=== PATIENT | male | born 1965 | race Caucasian/White ===

== ENCOUNTER 2017-09-26 15:37 | Inpatient (IN) | payer OTHER ==
[2017-09-26] MEDS ORDERED: DEXAMETHASONE 10 MG/ML VIAL IVP ONE (16:10)
--- NOTE | 2017-09-26 16:21 | EDPHY ---
General Narrative: CHIEF COMPLAINT: Headaches, abnormal MRI HISTORY OF PRESENT ILLNESS: Patient presents with reports of abnormal MRI. He has been having headaches over the past month. Yesterday he was evaluated for this with a CT scan that was reportedly abnormal with MRI recommended. There was a mass in the right frontal lobe. Today he had the MRI done with and without contrast at outside imaging center the MRI revealed 8.6 cm right frontal lobe mass. His primary care physician contacted him and he was sent to the emergency department. Neurosurgeon Dr. Kris Molina was notified of this pre-hospital. Patient has persistent headache with occasional nausea. No vomiting. No weakness or sensory changes. No seizure-like activity per spouse. No difficulty swallowing. No difficulty with urination. No retention of bowel or bladder. No difficulty ambulating. No previous incidence of cancer. No trauma. No blood thinners. No other associated complaints or modifying factors. NPO as of REVIEW OF SYSTEMS: Ten systems reviewed and are negative unless otherwise noted in the HPI PCP: Dr. Yoon in [facility] SPECIALISTS: None PAST MEDICAL HISTORY: Denies any medical history PAST SURGICAL HISTORY: No surgical history SOCIAL HISTORY: Nonsmoker. Occasional alcohol use with occasional marijuana use. 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 EOMs intact. ENT, Mouth: Mucous membranes moist. Airway patent. Neck: Normal inspection, supple, non-tender Respiratory: Lungs are clear to auscultation Cardiovascular: Regular rate and rhythm. No murmur Gastrointestinal: Abdomen is soft and nontender Back: non-tender, no bony abnormalities Neurological: GCS 15. A&O. Cranial nerves 2-12 grossly intact. nonfocal, normal gait. Strength is 5/5 in the arms and legs. No pronator drift. Normal tuhjmp-pu-lalm. No seizure-like activity Skin: Warm and dry, no rash Extremities: Nontender, no pedal edema Psychiatric: Mood and affect normal DIFFERENTIAL DIAGNOSES: Including but not limited to intracranial mass,, meningioma, glioma, subarachnoid hemorrhage, subdural hemorrhage, cephalgia MDM: 4:00 p.m. One month of headaches when right frontal lobe mass diagnosed by MRI today. He is awake and alert no acute distress. Vital signs within normal limits. No seizure-like activity. Normal neuro examination. Neurosurgery has been notified pre-hospital and I will discuss with him now. MRI and CT scans are brought to the hospital on disc and are currently being important. 4:10 p.m. Case discussed with neurosurgeon Dr. Molina. He requests 10 mg of IV Decadron. Her request NPO. He will come evaluate the patient shortly. 4:18 p.m. We received the MRI report from the outside Imaging Center. Impression 1. His large 8.6 cm intra-axial right frontal lobe solid and cystic mass lesion with partial enhancement of the mass. 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 Other intermediate high-grade glial tumor sore possible. Impression asked to mass effect related to the tumor resulted 8 mm leftward midline shift anteriorly and obstruction of the bilateral foramina Monro. Mild associated obstructive hydrocephalus 4:[address] Molina is at bedside evaluating the patient. Requested admission to Dr. Olguin, medical-surgical bed. He is admitted in stable condition. 5:10 p.m. Patient has been evaluated by neurosurgeon and/or surgical PA. They're tentative plan is for surgical intervention on . I have re-evaluated the patient at this time. He is resting comfortably in no acute distress. No seizure-like activity. He is still in stable condition and has been admitted for further care. SUPERVISION: Patient was independently examined, but I discussed the case with my secondary supervising physician Dr. Robledo - History Smoking Status: Former smoker - Objective Vital Signs: Initial Vital Signs Temperature (C) 98.4 F 09/26/17 15:52 Heart Rate 67 09/26/17 15:52 Respiratory Rate 16 09/26/17 15:52 Blood Pressure 151/94 H 09/26/17 15:52 O2 Sat (%) 97 09/26/17 15:52 O2 Delivery Mode Room Air Allergies/Adverse Reactions: ibuprofen Allergy (Verified 09/26/17 17:03) "Puffy/Swollen Eyes" Home Medications: Medication Instructions Recorded NK [No Known Home Meds] 09/26/17 Laboratory Results: Laboratory Results 09/26/17 16:21 09/26/17 16:21 09/26/17 09/26/17 09/26/17 16:21 16:21 16:21 WBC 6.77 10^3/uL 10^3/uL (3.80-9.50) RBC 5.10 10^6/uL 10^6/uL (4.40-6.38) Hgb 16.1 g/dL g/dL (13.7-17.5) Hct 46.0 % % (40.0-51.0) MCV 90.2 fL fL (81.5-99.8) MCH 31.6 pg pg (27.9-34.1) MCHC 35.0 g/dL g/dL (32.4-36.7) RDW 12.6 % % (11.5-15.2) Plt Count 227 10^3/uL 10^3/uL (150-400) MPV 9.4 fL fL (8.7-11.7) Neut % (Auto) 64.0 % % (39.3-74.2) Lymph % (Auto) 24.4 % % (15.0-45.0) Ward % (Auto) 9.0 % % (4.5-13.0) Eos % (Auto) 2.1 % % (0.6-7.6) Baso % (Auto) 0.4 % % (0.3-1.7) Nucleat RBC Rel Count 0.0 % % (0.0-0.2) Absolute Neuts (auto) 4.33 10^3/uL 10^3/uL (1.70-6.50) Absolute Lymphs (auto) 1.65 10^3/uL 10^3/uL (1.00-3.00) Absolute Monos (auto) 0.61 10^3/uL 10^3/uL (0.30-0.80) Absolute Eos (auto) 0.14 10^3/uL 10^3/uL (0.03-0.40) Absolute Basos (auto) 0.03 10^3/uL 10^3/uL (0.02-0.10) Absolute Nucleated RBC 0.00 10^3/uL 10^3/uL (0-0.01) Immature Gran % 0.1 % % (0.0-1.1) Immature Gran # 0.01 10^3/uL 10^3/uL (0.00-0.10) PT 13.6 SEC SEC (12.0-15.0) INR 1.02 (0.83-1.16) APTT 26.8 SEC SEC (23.0-38.0) Sodium 141 mEq/L mEq/L (135-145) Potassium 4.3 mEq/L mEq/L (3.5-5.2) Chloride 105 mEq/L mEq/L (97-110) Carbon Dioxide 24 mEq/l mEq/l (22-31) Anion Gap 12 mEq/L mEq/L (8-16) BUN 20 mg/dL mg/dL (7-23) Creatinine 1.0 mg/dL mg/dL (0.7-1.3) Estimated GFR > 60 Glucose 99 mg/dL mg/dL (70-100) Calcium 9.6 mg/dL mg/dL (8.5-10.4) Medications Given: Discontinued Medications Dexamethasone (Decadron Injection) 10 mg IVP EDNOW ONE Stop: 09/26/17 16:11 Last Admin: 09/26/17 16:41 Dose: 10 mg Departure - Departure Disposition: [facility] Acute Clinical Impression: Right frontal lobe mass Cephalgia Qualifiers: Headache type: other complicated headache syndrome Qualified Code(s): G44.59 - Other complicated headache syndrome Condition: Good
[2017-09-26 16:30] LABS: PLATELET COUNT 227 10^3/uL (150-400)
[2017-09-26 16:48] LABS: INR 1.02 (0.83-1.16); PROTIME(PATIENT) 13.6 SEC (12.0-15.0)
[2017-09-26] MEDS ORDERED: levETIRAcetam 1000MG/NACL 100 ML IV ONE (17:24)
--- NOTE | 2017-09-26 18:08 | GHP ---
[f rep st] HISTORY AND PHYSICAL DATE OF ADMISSION: 09/26/2017 ADDITIONAL DICTATED FOR: Kodi Olguin MD CHIEF COMPLAINT: Headaches. Frontal lobe tumor. HISTORY OF PRESENT ILLNESS: The patient is a 51-year-old gentleman who lives with his family in [facility]. Patient began having headaches approximately 1 month ago. The patient was sent for a CAT scan of his brain, which he then was referred to get an MRI of the brain, which occurred today in [place]. The patient was notified to come directly to the emergency department here at [facility] from the imaging center in [place] due to his findings. The patient denies any other symptoms other than his headache over the last month, some minimal forgetfulness approximately 1 week ago, but that has since resolved. The patient denies any balance troubles or weakness or difficulties with speech. The patient denies any vomiting or any changes in his vision. Denies any seizures. REVIEW OF SYSTEMS: A 10-point review of systems was performed and negative otherwise what was noted in the HPI. PAST MEDICAL HISTORY: Patient denies any past medical history. CURRENT MEDICATIONS: Patient does not take any current medications. ALLERGIES: Patient does not have any known drug allergies. SOCIAL HISTORY: Patient drinks approximately 1-2 beers daily in a casual setting. He denies any nicotine use. He does smoke marijuana. The patient is to his and they have 2 children, ages 8 and 6, and they live in [place], [place]. FAMILY HISTORY: Patient denies any family history of cancer. LABORATORY RESULTS: White blood cell count is 6.77, hemoglobin is 16.1, hematocrit is 46, platelet count is 227. PT is 13.6, INR is 6.8. Sodium is 141 , potassium 4.3, BUN 20, creatinine 1.0, glucose is 99. DIAGNOSTIC IMAGING: MRI of the brain performed with and without contrast at outside facility in [place] does demonstrate a large right frontal lobe mass measuring approximately 8-9 cm. There is no radiology report available for this imaging at this time. PHYSICAL EXAMINATION: VITAL SIGNS: Blood pressure is 134/95, heart rate is 51 , respiratory rate is 16, oxygen is 95% on room air, temperature is 36.9 degrees Celsius. HEENT: Head is normocephalic and atraumatic. Pupils are equal, round, and reactive to light. EOMI is intact. Full visual byrd by confrontation. Ears are patent. Nose is patent. RESPIRATORY: Deferred. CARDIAC: Deferred. ABDOMEN: Deferred. RECTAL: Deferred. GENITOURINARY: Deferred. NEUROLOGIC: The patient is awake, alert, and oriented to name, place , time, location, and situation. Memory is intact to immediate, past, and current events. Speech, no aphasia or dysphonia. Cranial nerves 2-12 are grossly intact. 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 Sensation is grossly intact to light touch throughout all dermatomal distributions in bilateral lower extremities. Reflexes: Biceps, triceps, brachioradialis, knee jerk, and ankle jerk are 2+/4. Toes are downgoing bilaterally. Rio sign is negative. Babinski is negative. ASSESSMENT AND PLAN: Patient is an otherwise very healthy 51-year-old male who resides in [place], [place] with his family. The patient began experiencing headaches approximately 1 month ago, underwent imaging in [place], [place] today , which MRI of the brain with and without demonstrated a large right frontal lobe mass. The patient then came directly to the emergency room here at [facility] for further evaluation. Radiology report is not available for the imaging sent from [place]. Patient is otherwise completely neurologically intact other than his headache. We will admit this patient to the medical-surgical floor and will administer Decadron as well as Keppra. The patient will be placed on the operating room schedule on afternoon, where he will undergo a right frontal craniotomy for tumor resection with Dr Olguin. The patient and his both agree and will proceed with surgery on . The patient was seen and examined in the emergency department by myself and Dr. Sung Molina at 1630 on September 26, 2017. /[id number]/MODL MTDD
[2017-09-26] MEDS: DEXAMETHASONE 4 MG TAB PO SCH ×2 (18:11→23:28)
[2017-09-26] MEDS: levETIRAcetam 500MG/NACL 100 ML IV SCH (21:40)
[2017-09-27] MEDS: DEXAMETHASONE 4 MG TAB PO SCH ×4 (05:35→23:04)
--- NOTE | 2017-09-27 08:09 | NEUSURGPN ---
Assessment/Plan: Assessment: 51 year old with one month history of headaches, large right frontal mass Plan: -Continue decadron and keppra -Patient remains neurologically intact -Surgery is scheduled for tomorrow at 1430 -NPO at midnight -Stealth MRI brain in am -Discussed patient with Dr Olguin who will come see patient later today or tomorrow -Please call neurosurgery with any questions/concerns Subjective: No new events, waiting for surgery tomorrow Objective: AxOx3 PERRLA EOMI CN 2-12 grossly intact no droop Speech clear MAEx4 Neuro Check Frequency: per routine Urinary Catheter in Place: No - Physician Discussed Patient with : [facility] Neurosurgery Physical Exam - Vitals, I&O, Labs I and O 09/26/17 09/27/17 09/28/17 05:59 05:59 05:59 Intake Total 10 Balance 10 Weight 80.6 kg Intake: IV Infused (ml) 10 Other: Intake Quantity Yes Sufficient Vital Signs Temp Pulse Resp BP Pulse Ox 36.8 C 63 15 126/72 H 95 09/27/17 04:00 09/27/17 04:00 09/27/17 04:00 09/27/17 04:00 09/27/17 04:00 ICD10 Worksheet Patient Problems: Problems Problem Status Onset Cephalgia Acute Right frontal lobe mass Acute
--- NOTE | 2017-09-27 10:56 | ASMTCMCOM ---
CM Note CM Note Notes: Reviewed chart and discussed w/RN. Pt here w/frontal lobe brain mass and is scheduled for crani surgery tomorrow. Pt lives in [place] w/ and 2 kids. CM will follow post-op. Date Signed: 09/27/2017 10:55 AM Electronically Signed By:Maritza Dotson RN
[2017-09-27] MEDS: levETIRAcetam 500MG/NACL 100 ML IV SCH ×2 (12:38→20:08)
[2017-09-27] MEDS ORDERED: BISACODYL 10 MG SUPP PR PRN (23:25)
[2017-09-27] MEDS ORDERED: LACTULOSE 20 GM/30 ML UDCUP PO PRN (23:25)
[2017-09-27] MEDS ORDERED: MAGNESIUM HYDROXIDE 30 ML UDCUP PO PRN (23:25)
[2017-09-27] MEDS: POLYETHYLENE GLYCOL 3350 17 GM PKT PO PRN (23:48)
[2017-09-28] MEDS: DEXAMETHASONE 4 MG TAB PO SCH ×3 (05:28→21:19)
[2017-09-28 05:31] LABS: PLATELET COUNT 236 10^3/uL (150-400)
[2017-09-28 05:46] LABS: PROTIME(PATIENT) 13.4 SEC (12.0-15.0)
[2017-09-28] MEDS ORDERED: GADOBUTROL 10 ML VIAL IVP ONE (06:01)
[2017-09-28] MEDS: SENNOSIDES/DOCUSATE SODIUM TAB PO SCH ×2 (09:38→21:20)
[2017-09-28] MEDS: levETIRAcetam 500MG/NACL 100 ML IV SCH (09:39)
[2017-09-28] MEDS ORDERED: BUPIVACAINE 0.25% 30 ML SDV ONE (12:29)
[2017-09-28] MEDS ORDERED: BACITRACIN ZINC 14.2 GM OINTTUBE TP ONE (12:30)
[2017-09-28] MEDS ORDERED: THROMBIN (BOVINE) 5,000 UNIT VIAL TP ONE (12:31)
[2017-09-28] MEDS ORDERED: GENTAMICIN SULFATE 80 MG/2 ML VIAL ONE ×2 (12:32→15:55)
[2017-09-28] MEDS ORDERED: SURGIFLO MATRIX KIT WITH THROMBIN 8ml TP ONE (12:34)
[2017-09-28] MEDS ORDERED: CHLORHEXIDINE GLUC HIBICLENS 118 ML BTL TP ONE (12:35)
[2017-09-28] MEDS ORDERED: MANNITOL 20% 100 GM/500 ML BAG IV ONE (12:37)
[2017-09-28] MEDS ORDERED: HYDROGEN PEROXIDE 236 ML BOTTLE TP ONE (12:37)
[2017-09-28] MEDS ORDERED: AVITENE POWDER 1 GM JAR TP ONE ×2 (12:37→16:07)
[2017-09-28] MEDS ORDERED: POVIDONE-IODINE 30 GM OINTTUBE TP ONE (12:37)
--- NOTE | 2017-09-28 13:01 | NEUSURGPN ---
Assessment/Plan: Assessment/Plan: Assessment: 51 year old with one month history of headaches, large right frontal mass Plan: -To OR this afternoon for right sided craniotomy for tumor resection -Continue decadron and keppra -Patient remains neurologically intact -Consents signed, [facility] -Discussed with Dr. Olguin -Please call neurosurgery with any questions/concerns Subjective: No new events. Ready for surgery this afternoon. Objective: AxOx3 PERRLA EOMI CN 2-12 grossly intact no droop Speech clear MAEx4 - Physician Discussed Patient with Dr.: Olguin Patient Seen by : [facility] Neurosurgery Physical Exam - Vitals, I&O, Labs I and O 09/27/17 09/28/17 09/29/17 05:59 05:59 05:59 Intake Total 10 Balance 10 Weight 80.6 kg Intake: IV Infused (ml) 10 Other: Intake Quantity Yes Yes Sufficient Number of Voids Toilet 1 Vital Signs Temp Pulse Resp BP Pulse Ox 37.0 C 54 L 16 136/82 H 94 09/28/17 11:25 09/28/17 11:25 09/28/17 11:25 09/28/17 11:25 09/28/17 11:25 Laboratory Results 09/28/17 04:55 09/28/17 04:55 ICD10 Worksheet Patient Problems: Problems Problem Status Onset Cephalgia Acute Right frontal lobe mass Acute
[2017-09-28] MEDS ORDERED: LR 1,000 ML IV ONE (13:44)
[2017-09-28] MEDS ORDERED: ceFAZolin 2 GM/SWFI 2 GM/20 ML SYR IVP ONE (14:00)
[2017-09-28] MEDS ORDERED: REMIFENTANIL HCL 1 MG VIAL ONE (14:03)
[2017-09-28] MEDS ORDERED: PROPOFOL 200 MG/20 ML VIAL ONE ×3 (14:04→17:08)
[2017-09-28] MEDS ORDERED: fentaNYL 250 MCG/5 ML INJ ONE (14:04)
[2017-09-28] MEDS ORDERED: PROPOFOL/EMULSION 500 MG/50 ML BOTTLE IV ONE (14:04)
[2017-09-28] MEDS ORDERED: ROCURONIUM 100 MG/10 ML VIAL ONE (14:15)
[2017-09-28] MEDS ORDERED: LIDOCAINE 2% 5 ML SDV ONE (14:18)
[2017-09-28] MEDS ORDERED: niCARdipine/NACL 200 ML IV SCH (14:30)
[2017-09-28] MEDS ORDERED: MIDAZOLAM 2 MG/2 ML VIAL IVP ONE (14:33)
[2017-09-28] MEDS ORDERED: SUGAMMADEX SODIUM 200 MG/2 ML VIAL IVP ONE (14:36)
[2017-09-28] MEDS ORDERED: ONDANSETRON 4 MG/2 ML VIAL ONE (14:36)
[2017-09-28] MEDS ORDERED: DEXAMETHASONE 4 MG/ML VIAL ONE (14:36)
[2017-09-28] MEDS ORDERED: niCARdipine/NACL 200 ML IV PRN (15:19)
[2017-09-28] MEDS ORDERED: *MD ORDERING ONLY-DEXAMETHASONE TAPER PO SCH (15:30)
--- NOTE | 2017-09-28 15:31 | PDANEPAE ---
ANE History of Present Illness right frontal lobe mass for crani ANE Past Medical History - Cardiovascular History Hx Hypertension: No Hx Arrhythmias: No Hx Chest Pain: No Hx Coronary Artery / Peripheral Vascular Disease: No Hx CHF / Valvular Disease: No Hx Palpitations: No - Pulmonary History Hx COPD: No Hx Asthma/Reactive Airway Disease: No Hx Recent Upper Respiratory Infection: No Hx Oxygen in Use at Home: No Hx Sleep Apnea: No Sleep Apnea Screening Result - Last Documented: Negative - Endocrine History Hx Diabetes: No Hypothyroid: No Hyperthyroid: No Obesity: no - Chronic Pain History Chronic Pain: No ANE Review of Systems Review of systems is: negative Review of Systems: - Exercise capacity Exercise capacity: >=4 METS ANE Patient History - Allergies Allergies/Adverse Reactions: ibuprofen Allergy (Verified 09/26/17 17:03) "Puffy/Swollen Eyes" - Home Medications Home medications: home medication list seen and reviewed Home Medications: NK [No Known Home Meds] 09/26/17 [Last Taken Unknown] - NPO status NPO Since - Liquids (Date): 09/28/17 NPO Since - Liquids (Time): 00:00 NPO Since - Solids (Date): 09/28/17 NPO Since - Solids (Time): 00:00 - Anes Hx Anes Hx: no prior problems - Smoking Hx Smoking Status: Former smoker ANE Labs/Vital Signs - Labs Result Diagrams: 09/28/17 04:55 09/28/17 04:55 - Vital Signs Blood Pressure: 136/82 Heart Rate: 54 Respiratory Rate: 16 O2 Sat (%): 94 Height: 182.88 cm Weight: 80.6 kg ANE Physical Exam - Airway Neck exam: FROM Mallampati Score: Class 1 Mouth exam: normal dental/mouth exam - Pulmonary Pulmonary: no respiratory distress - Cardiovascular Cardiovascular: regular rate and rhythym - ASA Status ASA Status: II ANE Anesthesia Plan Anesthesia Plan: general endotracheal anesthesia Lines/Monitors: arterial line Specialized Airway: video laryngoscope Urgent/Emergent Case: Armind[place]apito dos santosjayce completed preop but documented later for safe timely pt care
[2017-09-28] MEDS ORDERED: HYDROmorphONE/DILAUDID 2 MG/ML INJ ONE (15:43)
--- NOTE | 2017-09-28 16:40 | POSTANESTH ---
Post Anesthetic Evaluation Cardiovascular Status: Normal, Stable Respiratory Status: Normal, Stable Level of Consciousness/Mental Status: Can Participate in Eval Pain Control: Adequate, Prn Tx Ordered Nausea/Vomiting Control: Adequate, Prn Tx Ordered Complications Possibly Related to Anesthesia: None Noted
[2017-09-28] MEDS ORDERED: METOCLOPRAMIDE 10 MG/2 ML VIAL IVP PRN (18:13)
[2017-09-28] MEDS ORDERED: ACETAMINOPHEN 500 MG TAB PO PRN (18:13)
[2017-09-28] MEDS ORDERED: OXYCODONE/APAP 5/325 TAB PO PRN (18:13)
[2017-09-28] MEDS ORDERED: NS 500 ML IV PRN (18:13)
[2017-09-28] MEDS ORDERED: ALBUTEROL 3 ML DEYVIAL IH PRN (18:13)
[2017-09-28] MEDS ORDERED: PROMETHAZINE HCL 25 MG/ML INJ IVP PRN (18:13)
[2017-09-28] MEDS ORDERED: ONDANSETRON 4 MG/2 ML VIAL IVP PRN (18:13)
[2017-09-28] MEDS ORDERED: NALOXONE HCL 0.4 MG/ML INJ IVP PRN (18:13)
[2017-09-28] MEDS ORDERED: HYDROmorphONE/DILAUDID 1 MG/ML INJ IVP PRN (18:13)
[2017-09-28] MEDS ORDERED: LABETALOL HCL 5 MG/ML 20 ML MDV IVP PRN (18:13)
[2017-09-28] MEDS ORDERED: HYDROCODONE/APAP 5/325 TAB PO PRN (18:13)
[2017-09-28] MEDS ORDERED: fentaNYL 100 MCG/2 ML INJ IVP PRN (18:13)
--- NOTE | 2017-09-28 19:09 | POSTOPPROG ---
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
[2017-09-28] MEDS: NS W/ 20 KCl/L 1,000 ML IV SCH (19:51)
[2017-09-28] MEDS: ONDANSETRON 4 MG/2 ML VIAL IVP PRN (20:18)
[2017-09-28] MEDS ORDERED: DEXAMETHASONE 4 MG/ML VIAL IVP ONE (21:15)
[2017-09-28] MEDS ORDERED: FAMOTIDINE 20 MG/2 ML SDV IVP ONE (21:15)
[2017-09-28] MEDS ORDERED: levETIRAcetam 750 MG in NS (SYRINGE) 50 ML IV ONE (21:15)
[2017-09-28] MEDS: levETIRAcetam 500 MG TAB PO SCH (21:19)
[2017-09-28] MEDS: FAMOTIDINE 20 MG TAB PO SCH (21:19)
[2017-09-28] MEDS ORDERED: FAMOTIDINE 20 MG/NACL 50 ML IV ONE (21:30)
[2017-09-28] MEDS ORDERED: SCOPOLAMINE HYDROBROMIDE 1 MG/3 DAYS PATCH TD ONE (22:15)
[2017-09-28] MEDS: METOCLOPRAMIDE 10 MG/2 ML VIAL IVP PRN (22:22)
--- NOTE | 2017-09-28 23:09 | GOP ---
[f rep st] OPERATIVE REPORT DATE OF OPERATION: 09/28/2017 SURGEON: Kodi Olguin MD NEUROSURGEON: Kodi Olguin MD. [employer] PROFESSOR: Shy Sewell PA-C ANESTHESIA: General endotracheal. 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 POSTOPERATIVE DIAGNOSIS: Large intra-axial frontal brain mass, likely low- grade glial neoplasm. PROCEDURE PERFORMED: 1. Right frontal craniotomy. 2. Microsurgical gross total resection of large right frontal intrinsic brain tumor. 3. Use of the operative microscope. 4. Stealth stereotactic neuronavigation for volumetric gross total resection of intrinsic brain tumor. 5. Use of the intraoperative ultrasound. FINDINGS: Successful brain tumor resection. SPECIMENS: Right frontal brain mass for frozen and permanent section. ESTIMATED BLOOD LOSS: 30 cc. DESCRIPTION OF PROCEDURE: After informed consent was obtained from the patient , the patient was brought to the operating room, and was placed in supine position on the operating table. A formal time-out was performed, identifying the patient by name, medical record number, and date of . Preoperative antibiotics were given. The endotracheal tube was placed and general endotracheal anesthesia was smoothly induced. The head was then placed in the Starkey pins and kept in a relatively neutral position. The Stealth was then registered to the scalp and checked for accuracy using known surface landmarks. This was then used to plan a roughly 3/4 bicoronal incision, starting from just above the zygoma on the right side and crossing the midline behind the area of the tumor. A small strip of hair was clipped along the line of the incision, and 10 cc of 0.25% Marcaine with epinephrine was infiltrated in the skin for hemostasis. The head was then prepped and draped in the normal sterile fashion. The skin incision was made using a 10 blade. The subcutaneous tissues were dissected using monopolar electrocautery. Haresh clips were placed for hemostasis. The galea was opened along the full line of the incision, but the temporalis fascia was left intact. Once the incision was opened, the flap was retracted anteriorly by dissecting the areolar connective tissue between the skin and the periosteum. Once the flap was fully reflected, the Stealth was then used to localize the midline over the sagittal sinus and be sure that we had a large enough area for the craniotomy. Once this was complete, the periosteal flap was elevated anteriorly and preserved. At this point, 3 bur holes were made to the left of the midline, exposing the sagittal sinus and 2 bur holes were made on the right side just above the superior temporal line. This allowed us to turn a roughly 6 x 6 cm craniotomy flap using the craniotome. Some Gelfoam was placed over the sagittal sinus and dural tack-up stitches were placed around the circumference of the opening. At this point, the intraoperative ultrasound was brought in the field, and was used to visualize the area of the tumor, which was easily seen beneath. The cystic areas posteriorly were well visualized, also, confirming that we had a large enough craniotomy for the tumor removal. The dura was then opened in a U- shaped fashion with its base at the sagittal sinus and the brain was visualized. The operative microscope was brought on the field and the remainder of the procedure was performed under high-power magnification. Starting anteriorly, the joyce was coagulated and we coagulated the joyce in a circumferential fashion all the way around the edges of the tumor, as seen by the ultrasound and the Stealth. A corticectomy was then made and careful dissection was performed around the edges of the tumor except anteriorly, where we were transecting the anterior portion of the tumor. Laterally and posteriorly, the tumor was carefully dissected down to where the normal brain was visualized. Medially, the interhemispheric fissure was dissected and the anterior cerebral arteries were visualized. These were carefully preserved. This allowed us to use the ultrasonic aspirator to undercut this segment and remove a very large piece of the tumor. A small piece of this was sent for frozen section, which confirmed a low-grade glioma. At this point, the interhemispheric fissure was further dissected. The callosum marginal artery was identified on the right side and this was skeletonized of its branches that were entering the cingulate gyrus and preserved. The cingulate gyrus was then removed and the corpus callosum was visualized with the pericallosal arteries, which were also preserved. We were then able to dissect around the depth of the tumor posteriorly at the edge of the corpus callosum, and a portion of the tumor was growing into the corpus callosum. This was also removed. The frontal horn of the lateral ventricle was entered and a cotton brian was placed in the ventricle to avoid any blood entering into the ventricular system. At this point, the depth of the tumor was realized so we continued the corticectomy anteriorly all the way to the frontal tip, and the remainder of the tumor was removed by circumferential dissection and using the ultrasonic aspirator. The cavity was checked with the Stealth although, because of the tremendous brain shift because of the large size of the tumor, the accuracy was not very good. We did check all the borders of the tumor cavity, and no further tumor tissue was visualized. The wound was copiously irrigated using gentamicin irrigation. The cavity was lined with Surgicel. At this point, the dura was closed in a watertight fashion using running 4-0 Nurolon. Prior to the final closure, the wound was filled with sterile irrigation. A few central tack-up stitches were placed in the middle of the flap as well. The bone flap was plated back in place using Synthes titanium plates and screws. Again, the wound was copiously irrigated using bacitracin irrigation. The pericranial flap was laid over the craniotomy and a 10-Swazi VAIBHAV drain was placed in the sub galea space. The galea was then closed using interrupted 2-0 Vicryl, and the skin was closed using a running 4-0 Monocryl. The hair was washed, sterile dressings were placed. The drain was connected to a sterile drainage system. The patient was awakened in the operating room, where he was moving all of his extremities and speaking after extubation, and appeared to be at his normal neurologic baseline. All sponge and needle counts were correct at the end of the case. BRIEF CLINICAL HISTORY: The patient is a 51-year-old man who presents after having some headaches and a brain MRI was ordered by his primary care doctor, which showed a very large 8 cm frontal brain mass. This was depressing the genu of the corpus callosum and anterior portion of the right lateral ventricle. We discussed the options but ultimately recommended resection and biopsy. We have taken him electively today for this procedure. FLUIDS: 1500 of crystalloid. URINE OUTPUT: Per the anesthesia record. /[id number]/MODL MTDD
[2017-09-28] MEDS: HYDROmorphONE/DILAUDID 1 MG/ML INJ IVP PRN (23:33)
[2017-09-29] MEDS: HYDROmorphONE/DILAUDID 1 MG/ML INJ IVP PRN ×7 (00:49→22:32)
[2017-09-29] MEDS ORDERED: DEXAMETHASONE 4 MG/ML VIAL IVP ONE (02:30)
[2017-09-29] MEDS: DEXAMETHASONE 4 MG TAB PO SCH ×4 (02:45→21:01)
[2017-09-29] MEDS: NS W/ 20 KCl/L 1,000 ML IV SCH (06:21)
[2017-09-29] MEDS: ONDANSETRON DISINTEGRATING 4 MG TAB PO PRN ×2 (07:30→12:12)
[2017-09-29] MEDS: FAMOTIDINE 20 MG TAB PO SCH ×2 (08:35→21:04)
[2017-09-29] MEDS: levETIRAcetam 500 MG TAB PO SCH ×2 (08:35→21:02)
[2017-09-29] MEDS: SENNOSIDES/DOCUSATE SODIUM TAB PO SCH ×2 (08:35→21:04)
[2017-09-29] MEDS: PROMETHAZINE HCL 25 MG/ML INJ IVP PRN ×2 (08:35→22:32)
--- NOTE | 2017-09-29 08:47 | NEUSURGPN ---
Date of Surgery: 09/28/17 Post Op Day: 1 Assessment/Plan: Assessment: 51 year old with one month history of headaches, large right frontal mass. S/P right frontal craniotomy for tumor resection POD#1 Plan: -Patient with some nausea, anti-nausea helping -Patient remains sleepy, to be expected at this point due to size and location of mass. Follows commands and equal strength throughout all extremities -Post op MRI pending this am -VAIBHAV output 500 last night, will take off suction -Remove arterial line -Continue Keppra and Decadron -Frozen path results low grade glioma, final results pending -Discussed patient with Dr Olguin -Please call neurosurgery with any questions/concerns Subjective: Patient has nausea, following commands Objective: Oriented x3, difficult for patient to keep eyes open PERRLA EOMI CN 2-12 grossly intact No droop 5/5 BUE, BLE Dressing CDI VAIBHAV patent Neuro Check Frequency: per routine Urinary Catheter in Place: Yes Urinary Catheter Indication: Accurate I & O Required - Physician Discussed Patient with : Sharif Neurosurgery Physical Exam - Vitals, I&O, Labs I and O 09/28/17 09/29/17 09/30/17 05:59 05:59 05:59 Intake Total 2730 Output Total 2755 Balance -25 Weight 80.6 kg Intake: Oral (ml) 80 IV Intake (ml) 1600 IV Infused (ml) 1050 NS W/ 20 KCl/L 1,000 ml @ 1050 100 mls/hr IV CONT ROSA Rx#:[id number] Output: Urine (ml) 2024 Catheter 2024 Estimated Blood Loss (ml) 30 Emesis (ml) 150 VAIBHAV Drain Output (ml) 550 Right Head Emre Arriaza 550 Other: Intake Quantity Yes Sufficient Number of Voids Toilet 1 Number of Stools Catheter 0 Vital Signs Temp Pulse Resp BP Pulse Ox 37.0 C 48 L 16 127/59 H 95 09/29/17 07:00 09/29/17 07:00 09/29/17 07:00 09/29/17 07:00 09/29/17 07:00 Laboratory Results 09/29/17 04:55 09/28/17 04:55 ICD10 Worksheet Patient Problems: Problems Problem Status Onset Cephalgia Acute Right frontal lobe mass Acute
[2017-09-29] MEDS: METOCLOPRAMIDE 10 MG/2 ML VIAL IVP PRN ×2 (10:42→16:26)
[2017-09-29] MEDS: HYDROCODONE/APAP 10/325 TAB PO PRN ×2 (12:11→18:26)
[2017-09-29] MEDS: hydrALAZINE 20 MG/ML VIAL IVP PRN (12:11)
[2017-09-29] MEDS: DIAZEPAM 5 MG TAB PO PRN (15:17)
[2017-09-29] MEDS ORDERED: GADOBUTROL 10 ML VIAL IVP ONE (15:26)
[2017-09-29] MEDS ORDERED: PATCH REMOVAL 1 EA PATCH TD ONE (22:15)
[2017-09-30] MEDS: hydrALAZINE 20 MG/ML VIAL IVP PRN ×3 (00:24→23:52)
[2017-09-30] MEDS: HYDROmorphONE/DILAUDID 1 MG/ML INJ IVP PRN (00:24)
[2017-09-30] MEDS: PROMETHAZINE HCL 25 MG/ML INJ IVP PRN ×3 (00:25→20:26)
[2017-09-30] MEDS: DIAZEPAM 5 MG TAB PO PRN ×3 (00:25→20:28)
[2017-09-30] MEDS: DEXAMETHASONE 4 MG TAB PO SCH ×4 (02:47→20:28)
[2017-09-30] MEDS: ONDANSETRON DISINTEGRATING 4 MG TAB PO PRN (02:58)
[2017-09-30] MEDS: HYDROCODONE/APAP 10/325 TAB PO PRN ×3 (02:58→20:27)
[2017-09-30] MEDS: FAMOTIDINE 20 MG TAB PO SCH ×2 (08:04→20:28)
[2017-09-30] MEDS: levETIRAcetam 500 MG TAB PO SCH ×2 (08:04→20:27)
[2017-09-30] MEDS: SENNOSIDES/DOCUSATE SODIUM TAB PO SCH ×2 (08:04→20:28)
--- NOTE | 2017-09-30 09:48 | NEUSURGPN ---
Date of Surgery: 09/28/17 Post Op Day: 2 Assessment/Plan: Assessment: 51 year old with one month history of headaches, large right frontal mass. S/P right frontal craniotomy for tumor resection POD#2 Plan: -Patient with some nausea, anti-nausea helping -Patient remains sleepy, to be expected at this point due to size and location of mass. Follows commands and equal strength throughout all extremities -Post op MRI: No significant marginal resection cavity enhancement present. There is communication of the resection cavity with the frontal horn of the right lateral ventricle. The resection cavity is filled with liquid blood. There is little change in right to left shift of approximately 7 mm. 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 Objective: Awake. Answers simple questions. Speech limited Following commands Strength full Incision with dressing. Swelling at right side of face - Physician Discussed Patient with Dr.: Olguin Neurosurgery Physical Exam - Vitals, I&O, Labs I and O 09/29/17 09/30/17 10/01/17 05:59 05:59 05:59 Intake Total 2730 1522 Output Total 2755 120 Balance -25 1402 Weight 80.6 kg Intake: Oral (ml) 80 450 IV Intake (ml) 1600 IV Infused (ml) 1050 1072 NS W/ 20 KCl/L 1,000 ml @ 1050 1072 100 mls/hr IV CONT ROSA Rx#:[id number] Output: Urine (ml) 2024 Catheter 2024 Estimated Blood Loss (ml) 30 Emesis (ml) 150 VAIBHAV Drain Output (ml) 550 120 Right Head Emre Arriaza 550 120 Other: Intake Quantity Yes Sufficient Number of Voids Toilet 2 Number of Stools Catheter 0 Vital Signs Temp Pulse Resp BP Pulse Ox 37.1 C 54 L 16 134/76 H 92 09/30/17 08:10 09/30/17 08:10 09/30/17 08:10 09/30/17 08:10 09/30/17 08:10 Laboratory Results 09/29/17 04:55 09/28/17 04:55 ICD10 Worksheet Patient Problems: Problems Problem Status Onset Cephalgia Acute Right frontal lobe mass Acute
--- NOTE | 2017-09-30 12:41 | ASMTCMCOM ---
CM Note CM Note Notes: Pt crani POD #2, therapy evals still pending. D/c plan of care: TBD based on pt progress and therapy evals. Date Signed: 09/30/2017 12:40 PM Electronically Signed By:CHUN Donato
[2017-09-30] MEDS: METOCLOPRAMIDE 10 MG/2 ML VIAL IVP PRN ×2 (12:46→23:44)
[2017-10-01] MEDS: HYDROCODONE/APAP 10/325 TAB PO PRN ×3 (02:00→18:02)
[2017-10-01] MEDS: DEXAMETHASONE 4 MG TAB PO SCH ×4 (02:00→20:33)
[2017-10-01] MEDS: DIAZEPAM 5 MG TAB PO PRN (02:00)
[2017-10-01] MEDS: HYDROmorphONE/DILAUDID 1 MG/ML INJ IVP PRN (03:41)
[2017-10-01] MEDS: FAMOTIDINE 20 MG TAB PO SCH ×2 (07:53→20:34)
[2017-10-01] MEDS: SENNOSIDES/DOCUSATE SODIUM TAB PO SCH ×2 (07:53→20:32)
[2017-10-01] MEDS: levETIRAcetam 500 MG TAB PO SCH ×2 (07:53→20:32)
--- NOTE | 2017-10-01 08:46 | NEUSURGPN ---
Date of Surgery: 09/28/17 Post Op Day: 3 Assessment/Plan: Assessment: 51 year old with one month history of headaches, large right frontal mass. S/P right frontal craniotomy for tumor resection POD#3 Plan: -Patient remains sleepy, to be expected at this point due to size and location of mass. Follows commands and equal strength throughout all extremities. Answering simple questions. -Post op MRI: No significant marginal resection cavity enhancement present. There is communication of the resection cavity with the frontal horn of the right lateral ventricle. The resection cavity is filled with liquid blood. There is little change in right to left shift of approximately 7 mm. -VAIBHAV drain removed -Continue Keppra and Decadron taper -Frozen path results low grade glioma, final results pending -PT/OT/PRE KINDERGARTEN TEACHER -Discussed patient with Dr Olguin -Please call neurosurgery with any questions/concerns Subjective: Has mild headache. Lethargic. Objective: Awake. Alert. Right sided facial edema and ecchymosis Following commands. Answering simple questions. Muscle strength full at 5/5 Incision with dressing c/d/i - Physician Discussed Patient with : Sharif Neurosurgery Physical Exam - Vitals, I&O, Labs I and O 09/30/17 10/01/17 10/02/17 05:59 05:59 05:59 Intake Total 1522 280 Output Total 120 40 Balance 1402 240 Intake: Oral (ml) 450 280 IV Infused (ml) 1072 NS W/ 20 KCl/L 1,000 ml @ 1072 100 mls/hr IV CONT ROSA Rx#:[id number] Output: VAIBHAV Drain Output (ml) 120 40 Right Head Emre Arriaza 120 40 Other: Intake Quantity Yes Yes Sufficient Number of Voids Catheter 1 Toilet 2 3 Vital Signs Temp Pulse Resp BP Pulse Ox 37.1 C 59 L 16 124/93 H 95 10/01/17 08:00 10/01/17 08:00 10/01/17 08:00 10/01/17 08:00 10/01/17 08:00 Laboratory Results 09/29/17 04:55 09/28/17 04:55 ICD10 Worksheet Patient Problems: Problems Problem Status Onset Cephalgia Acute Right frontal lobe mass Acute
[2017-10-01] MEDS: POLYETHYLENE GLYCOL 3350 17 GM PKT PO PRN (11:37)
[2017-10-02] MEDS: HYDROCODONE/APAP 10/325 TAB PO PRN ×4 (00:29→17:16)
[2017-10-02] MEDS: ACETAMINOPHEN 325 MG TAB PO PRN ×2 (02:18→15:50)
--- NOTE | 2017-10-02 08:00 | NEUSURGPN ---
Date of Surgery: 09/28/17 Post Op Day: 4 Assessment/Plan: Assessment: 51 year old with one month history of headaches, large right frontal mass. S/P right frontal craniotomy for tumor resection POD#4 Plan: -Patient remains sleepy, to be expected at this point due to size and location of mass. Follows commands and equal strength throughout all extremities. Answering simple questions. -Post op MRI: No significant marginal resection cavity enhancement present. There is communication of the resection cavity with the frontal horn of the right lateral ventricle. The resection cavity is filled with liquid blood. There is little change in right to left shift of approximately 7 mm. -Will remove dressing today, ok for patient to shower and wash hair with baby shampoo -CT brain this am to eval for hydrocephalus -Continue Keppra and Decadron taper -Frozen path results low grade glioma, final results pending -PT/OT/PAPERBOARD MACHINE OPERATOR -Patient has poor appetite, encouraged PO intake -Case management to eval for dispo options -Discussed patient with Dr Olguin -Please call neurosurgery with any questions/concerns Subjective: Patient complaining of headache and neck pain Objective: Awake. Alert. Right sided facial edema and ecchymosis Following commands. Answering simple questions. Muscle strength full at 5/5 Incision with dressing c/d/i Neuro Check Frequency: per routine Urinary Catheter in Place: No - Physician Discussed Patient with Dr.: Olguin Neurosurgery Physical Exam - Vitals, I&O, Labs I and O 10/01/17 10/02/17 10/03/17 05:59 05:59 05:59 Intake Total 280 1180 Output Total 40 Balance 240 1180 Intake: Oral (ml) 280 1180 Output: VAIBHAV Drain Output (ml) 40 Right Head Emre Arriaza 40 Other: Intake Quantity Yes Yes Sufficient Number of Voids Catheter 1 1 Toilet 3 1 Number of Stools Toilet 1 Vital Signs Temp Pulse Resp BP Pulse Ox 37.2 C 60 16 132/88 H 93 10/02/17 07:42 10/02/17 07:42 10/02/17 07:42 10/02/17 07:42 10/02/17 07:42 Laboratory Results 09/29/17 04:55 09/28/17 04:55 ICD10 Worksheet Patient Problems: Problems Problem Status Onset Cephalgia Acute Right frontal lobe mass Acute
[2017-10-02] MEDS: DIAZEPAM 5 MG TAB PO PRN (08:19)
[2017-10-02] MEDS: DEXAMETHASONE 4 MG TAB PO SCH ×2 (08:19→20:31)
[2017-10-02] MEDS: FAMOTIDINE 20 MG TAB PO SCH ×2 (08:19→20:31)
[2017-10-02] MEDS: levETIRAcetam 500 MG TAB PO SCH ×2 (08:20→20:31)
[2017-10-02] MEDS: ACET/CAFFEINE/BUTA FIORICET 1 EACH TAB PO PRN ×2 (08:20→17:16)
[2017-10-02] MEDS: SENNOSIDES/DOCUSATE SODIUM TAB PO SCH ×2 (08:43→20:32)
[2017-10-02] MEDS: hydrALAZINE 20 MG/ML VIAL IVP PRN ×2 (16:06→16:49)
[2017-10-02] MEDS: ONDANSETRON DISINTEGRATING 4 MG TAB PO PRN (16:11)
[2017-10-03] MEDS: HYDROCODONE/APAP 10/325 TAB PO PRN ×5 (00:17→23:44)
[2017-10-03] MEDS: hydrALAZINE 20 MG/ML VIAL IVP PRN (01:10)
[2017-10-03] MEDS: ONDANSETRON 4 MG/2 ML VIAL IVP PRN (02:30)
[2017-10-03] MEDS: DIAZEPAM 5 MG TAB PO PRN (02:30)
[2017-10-03] MEDS: ACET/CAFFEINE/BUTA FIORICET 1 EACH TAB PO PRN (08:05)
[2017-10-03] MEDS: DEXAMETHASONE 4 MG TAB PO SCH ×2 (08:05→20:19)
[2017-10-03] MEDS: FAMOTIDINE 20 MG TAB PO SCH ×2 (08:05→20:20)
[2017-10-03] MEDS: levETIRAcetam 500 MG TAB PO SCH ×2 (08:05→20:20)
[2017-10-03] MEDS: SENNOSIDES/DOCUSATE SODIUM TAB PO SCH ×2 (08:34→20:21)
--- NOTE | 2017-10-03 09:15 | NEUSURGPN ---
Date of Surgery: 09/28/17 Post Op Day: 5 Assessment/Plan: Assessment: 51 year old with one month history of headaches, large right frontal mass. S/P right frontal craniotomy for tumor resection POD#5 Plan: -Patient more alert this am -CT head yesterday demonstrates expected post op findings, no evidence of hydrocephalus. CT reviewed by Dr Olguin -Post op MRI: No significant marginal resection cavity enhancement present. There is communication of the resection cavity with the frontal horn of the right lateral ventricle. The resection cavity is filled with liquid blood. There is little change in right to left shift of approximately 7 mm. -Will remove dressing today, ok for patient to shower and wash hair with baby shampoo -Continue Keppra and Decadron taper -Frozen path results low grade glioma, final results pending -Will consult oncology in out patient setting once final path results arrive -Elevated SBP 140-160's likely related to pain, currently treating with Hydralazine. Dr Olguin aware -PT/OT/SEPTIC TANK SERVICER -Patient has poor appetite, encouraged PO intake -Case management to eval for dispo options, ok to dc to rehab from our standpoint -Discussed patient with Dr Olguin -Please call neurosurgery with any questions/concerns Subjective: Continued frontal headache Objective: AxO x3 Speech clear No droop PERRLA CN 2-12 grossly intact Ambulating well in room Dressing removed, incision CDI with sutures Neuro Check Frequency: per routine Urinary Catheter in Place: No - Physician Discussed Patient with Dr.: Olguin Neurosurgery Physical Exam - Vitals, I&O, Labs I and O 10/02/17 10/03/17 10/04/17 05:59 05:59 05:59 Intake Total 1180 300 Balance 1180 300 Intake: Oral (ml) 1180 300 Other: Intake Quantity Yes Sufficient Number of Voids Catheter 1 Toilet 1 3 Number of Stools Toilet 1 Vital Signs Temp Pulse Resp BP Pulse Ox 37.2 C 62 16 158/86 H 93 10/03/17 08:00 10/03/17 08:00 10/03/17 08:00 10/03/17 08:00 10/03/17 08:00 Laboratory Results 09/29/17 04:55 09/28/17 04:55 ICD10 Worksheet Patient Problems: Problems Problem Status Onset Cephalgia Acute Right frontal lobe mass Acute
--- NOTE | 2017-10-03 15:49 | ASMTCMCOM ---
CM Note CM Note Notes: Late entry from 10/02: Chart reviewed. Met with who is exhausted and fearful. Therapies trying to work more with the patient though he is very sleepy and hard to arouse. May benefit from inpatient rehap, The live in [facility] and have two young children. His plan of care is yet to be determined. CM to follow. Date Signed: 10/03/2017 03:49 PM Electronically Signed By:Jasmyn Campbell RN
[2017-10-03] MEDS: ACETAMINOPHEN 325 MG TAB PO PRN (16:17)
[2017-10-03 23:37] VITALS: RESP 16
[2017-10-04] MEDS: HYDROCODONE/APAP 10/325 TAB PO PRN (05:58)
[2017-10-04] MEDS: DIAZEPAM 5 MG TAB PO PRN (05:58)
[2017-10-04 07:38] VITALS: BP 152/86; PULSE 60; TEMP 98.7; O2SAT 97
[2017-10-04] MEDS: levETIRAcetam 500 MG TAB PO SCH (08:27)
[2017-10-04] MEDS: DEXAMETHASONE 4 MG TAB PO SCH (08:28)
[2017-10-04] MEDS: FAMOTIDINE 20 MG TAB PO SCH (08:28)
[2017-10-04] MEDS: SENNOSIDES/DOCUSATE SODIUM TAB PO SCH (08:46)
--- NOTE | 2017-10-04 10:02 | NEUSURGPN ---
Date of Surgery: 09/28/17 Post Op Day: 6 Assessment/Plan: Assessment: 51 year old with one month history of headaches, large right frontal mass. S/P right frontal craniotomy for tumor resection POD#6 Plan: -Patient continues to improve with his mentation -CT head 2/12 expected post op findings, no evidence of hydrocephalus. CT reviewed by Dr Olguin -Post op MRI: No significant marginal resection cavity enhancement present. There is communication of the resection cavity with the frontal horn of the right lateral ventricle. The resection cavity is filled with liquid blood. There is little change in right to left shift of approximately 7 mm. -Continue Keppra and Decadron taper -Frozen path results low grade glioma, final results pending -Will consult oncology in out patient setting once final path results arrive -PT/OT/SEAM RUBBING MACHINE OPERATOR -Patient has poor appetite, encouraged PO intake -Case management to eval for dispo options, ok to dc to rehab from our standpoint -Discussed patient with Dr Olguin -Please call neurosurgery with any questions/concerns Subjective: Headache improving Objective: AxO x3 Remains somewhat drowsy PERRLA EOMI CN 2-12 grossly intact No droop Incision CDI Neuro Check Frequency: per routine Urinary Catheter in Place: No - Physician Discussed Patient with Dr.: Olguin Neurosurgery Physical Exam - Vitals, I&O, Labs I and O 10/03/17 10/04/17 10/05/17 05:59 05:59 05:59 Intake Total 300 3000 Balance 300 3000 Intake: Oral (ml) 300 3000 Other: Number of Voids Toilet 3 3 Vital Signs Temp Pulse Resp BP Pulse Ox 37.1 C 60 16 152/86 H 97 10/04/17 07:34 10/04/17 07:34 10/04/17 07:34 10/04/17 07:34 10/04/17 07:34 Laboratory Results 09/29/17 04:55 09/28/17 04:55 ICD10 Worksheet Patient Problems: Problems Problem Status Onset Cephalgia Acute Right frontal lobe mass Acute
--- NOTE | 2017-10-04 10:09 | PDIAF ---
- Diagnosis Diagnosis: Right frontal lobe tumor Code Status: Full Code - Medication Management Discharge Medications: Medications to Continue on Transfer Acet/Caffeine/Buta Fioricet [Fioricet (*)] 1 each PO Q6HRS PRN tab 10/04/17 [ Last Taken Unknown] Acetaminophen [Tylenol 325mg (*)] 650 mg PO Q4HRS PRN tab 10/04/17 [Last Taken Unknown] Dexamethasone [Decadron 2 MG (*)] 1 mg PO Q24H #1 tab 10/04/17 [Last Taken Unknown] Dexamethasone [Decadron 2 MG (*)] 2 mg PO Q12H #2 tab 10/04/17 [Last Taken Unknown] Dexamethasone [Decadron 2 MG (*)] 2 mg PO Q24H #1 tab 10/04/17 [Last Taken Unknown] Diazepam [Valium 5 MG (*)] 2.5 - 5 mg PO QID PRN #30 tab 10/04/17 [Last Taken Unknown] HYDROcodone/APAP 10/325 [[place] 10/325 (*)] 1 - 2 tab PO Q6HRS PRN #60 tab [Last Taken Unknown] Sennosides/Docusate Sodium [Senokot-S] 1 - 2 tab PO BID tab 10/04/17 [Last Taken Unknown] levETIRAcetam [Keppra 500 mg (*)] 750 mg PO BID #60 tab 10/04/17 [Last Taken Unknown] Discharge Medications: Refer to the Discharge Home Medication list for PRN reason. PICC Care - Routine: N/A - Orders Services needed: Registered Nurse, Certified School Bus Driver/Custodian, Physical Therapy, Occupational Therapy, Speech Language Pathologist Isolation Type: None Diet Recommendation: no restrictions on diet Diet Texture: Regular Texture Diet Cool: Not applicable Wound Care Instructions: Wash hair daily with baby shampoo Activity/Weight Bearing Restrictions: Do not lift greater than 10 pounds - Follow Up Care Current Providers and Referrals: JAYJAY FITCH [Primary Care Provider] - As per Instructions Kodi Olguin MD [Medical Doctor] - follow up in 10 days
[2017-10-04] MEDS: ACET/CAFFEINE/BUTA FIORICET 1 EACH TAB PO PRN (10:46)
--- NOTE | 2017-10-04 12:40 | ASDISCHSUM ---
Discharge Information Plan Status:Inpatient Rehab Medically Cleared to Leave: Discharge Date:10/04/2017 12:28 PM CM D/C Disposition:[facility] Acute ADT D/C Disposition:[facility] IP Projected Discharge Date:10/04/2017 11:00 AM Transportation at D/C:Family Discharge Delay Reason: Follow-Up Date:10/04/2017 11:00 AM Discharge Slot: Final Diagnosis: Placement Information Referral Type:Rehabilitation Hospital Referral ID:[id number] Provider Name:[facility] Address 1:[address] Phone Number: Address 2: Fax Number: City:[place] Selection Factors: State:[place] Patient Contact Information Contact Name:JUSTINEAj Relationship: Address:[facility] [address] Work Phone: Aníbal:[facility] Phone: [facility] Code:[place] [address] Email: Financial Information Financial Class:HMO and PPO Plans Primary Plan Desc:H[employer] [place] [employer] Primary Plan Number:[id number] Secondary Plan Desc: Secondary Plan Number: Assessment Information [facility] CM Progress Note CM Note CM Note Notes: Reviewed chart and discussed w/RN. Pt here w/frontal lobe brain mass and is scheduled for crani surgery tomorrow. Pt lives in [facility] w/ and 2 kids. CM will follow post-op. Date Signed: 09/27/2017 10:55 AM Electronically Signed By:Maritza Dotson RN [facility] CM Progress Note CM Note CM Note Notes: Pt crani POD #2, therapy evals still pending. D/c plan of care: TBD based on pt progress and therapy evals. Date Signed: 09/30/2017 12:40 PM Electronically Signed By:CHUN Donato [facility] CM Progress Note CM Note CM Note Notes: Late entry from 10/02: Chart reviewed. Met with who is exhausted and fearful. Therapies trying to work more with the patient though he is very sleepy and hard to arouse. May benefit from inpatient rehap, The live in [facility] and have two young children. His plan of care is yet to be determined. CM to follow. Date Signed: 10/03/2017 03:49 PM Electronically Signed By:Jasmyn Campbell RN [facility] CM Progress Note CM Note CM Note Notes: Insurance authorization is obtained for pt to d/c to [facility]. Pt wants to transport pt. Orders to be obtained via [employer]. Pt informed to make no stops and call to nurses station upon arrival. Date Signed: 10/04/2017 12:39 PM Electronically Signed By:CHUN Donato Intervention Information
--- NOTE | 2017-10-04 12:40 | ASMTCMCOM ---
CM Note CM Note Notes: Insurance authorization is obtained for pt to d/c to [facility]. Pt wants to transport pt. Orders to be obtained via [employer]. Pt informed to make no stops and call to nurses station upon arrival. Date Signed: 10/04/2017 12:39 PM Electronically Signed By:CHUN Donato
[2017-10-04] MEDS ORDERED: DEXAMETHASONE 2 MG TAB PO SCH (20:30)
[2017-10-07] MEDS ORDERED: DEXAMETHASONE 2 MG TAB PO SCH (20:30)
[2017-10-08] MEDS ORDERED: DEXAMETHASONE 2 MG TAB PO SCH (08:30)
[2017-10-10] MEDS ORDERED: DEXAMETHASONE 2 MG TAB PO SCH (20:30)
[2017-10-11] MEDS ORDERED: DEXAMETHASONE 2 MG TAB PO SCH (08:30)
== END 2017-10-04 12:28 | DRG 27 ==
LOC: F3N 17:53 → F2N 09-28 15:07 → F3N 09-29 18:33
PROVIDERS: ADMIT Neurological Surgery; ATTEND Neurological Surgery
PROC: 00B00ZZ Excision of Brain, Open Approach (ICD-10-PCS; principal; 2017-09-28 14:30)
DX: C71.1 Malignant neoplasm of frontal lobe (principal)
CPT/HCPCS: 88323-90; 88342; 92507-GN; 92523-GN; 96374; 97116-GP; 97162-GP; 97166-GO; 97530-GO; 97535-GO; A9585; C1713; J0171; J0360; J0690; J1100; J1170; J1580; J1953; J2250; J2405; J2550; J2704; J2765; J3010

== ENCOUNTER 2017-10-04 12:59 | Inpatient (IN) | payer OTHER ==
[2017-10-04] MEDS ORDERED: DIAZEPAM 5 MG TAB PO PRN (14:00)
[2017-10-04] MEDS ORDERED: HYDROCODONE/APAP 10/325 TAB PO PRN (14:00)
[2017-10-04] MEDS ORDERED: DEXAMETHASONE 2 MG TAB PO SCH ×3 (14:00)
--- NOTE | 2017-10-04 16:09 | GHP ---
[f rep st] HISTORY AND PHYSICAL POST ADMISSION PHYSICIAN EVALUATION AND REHABILITATION TREATMENT PLAN DATE OF ADMISSION: 10/04/2017 DATE OF EVALUATION: 10/04/2017. TIME OF EVALUATION: 1440. REFERRING FACILITY: [facility]. IMPAIRMENT GROUP: 2.1. DATE OF ONSET: 09/26/2017. REFERRING PHYSICIAN: Dr. Olguin. CONSULTING PHYSICIANS: There were none. REHABLITATION DIAGNOSIS: Debility status post craniotomy for resection of right frontal tumor. ETIOLOGIC DIAGNOSIS: Nontraumatic brain dysfunction. DATE OF SURGERY: 09/28/2017. HISTORY OF PRESENT ILLNESS: This patient came to [facility] for an elective craniotomy and resection of a brain tumor. He began having headaches approximately 1 month previous. He had a CT scan of his brain, and this was followed by an MRI of the brain which was done in [place], [place]. The patient lives with his family in [place], [place]. From Radiology, he was referred directly to [facility] due to findings of the right frontal mass. He was treated with dexamethasone and levetiracetam and chose elective surgery for resection. He underwent surgery on 09/28/2017. Postoperative course was complicated by nausea, somnolence, constipation, and headaches. He reports that the most effective treatment for the headache has been the Fioricet tablet, and that the opiates were not as effective. He had a poor appetite. Lab and studies during his stay: Initial pathology showed low-grade glioma. Postoperative MRI showed no significant marginal resection cavity enhancement, communication of the resection cavity with the frontal horn of the right ventricle, resection cavity filled with blood, and little change in right-to- left shift of approximately 7 mm. CBC showed elevated white blood cell count. On 09/29/2017, it was 18, consistent with corticosteroid treatment. He had postoperative anemia with a hemoglobin of 13 and hematocrit of 39.2. Coagulation studies were normal. Serum chemistry on 09/28/2017, showed a slightly low carbon dioxide at 20, an elevated glucose at 141, but otherwise renal function and electrolytes were within normal limits. PRECAUTIONS: He is a fall risk. He has seizure precautions. ACTIVE COMORBIDITIES: He has no active tier 1, tier 2, or tier 3 comorbidities. PAST MEDICAL HISTORY: He has not had any serious illnesses in his life. PAST SURGICAL HISTORY: He has not had any surgeries. PREHOSPITAL MEDICATIONS: He was not on any medications. ADMISSION MEDICATIONS: 1. Fioricet 1 p.o. q.4 hours p.r.n. 2. Acetaminophen 650 mg p.o. q.4 hours p.r.n. 3. Dexamethasone taper 2 mg p.o. twice daily through 10/07/2017, then 2 mg p.o. daily from 10/08/2017 through 10/10/2017, and then 1 mg daily from 2017 through 10/13/2017. 4. Diazepam 2.5 mg p.o. 4 times daily p.r.n. spasms. 5. Levetiracetam 750 mg p.o. b.i.d. 6. Hydrocodone 1-2 tablets q.4 hours p.r.n. 7. Senna/docusate 1-2 tablets p.o. b.i.d. ALLERGIES: There is an allergy listed to ibuprofen. SOCIAL HISTORY: He is . He lives with his . He has 2 children, ages 6 and 8. They live in [place], [place]. 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 He is an avid skier and works out regularly at a local gym. He is a nonsmoker. He uses occasional alcohol and marijuana. FAMILY HISTORY: Noncontributory. REVIEW OF SYSTEMS: He reports headache. He rates it as a 3/10 to 4/10 currently. He reports that the Fioricet has been the most effective treatment. He has some nausea. He has not had vomiting. He has not had a bowel movement in several days. He denies weakness, numbness, or tingling of the extremities. He denies vision changes, though he has light intolerance. He denies cough or dyspnea. Otherwise, a 10-point review of systems is negative. PHYSICAL EXAMINATION: VITAL SIGNS: Vitals are not yet available in the chart. Vitals from this morning in the hospital: blood pressure was 152/86, heart rate 60, respiratory rate was 16, oxygen saturation was 97% on room air, temperature was 37.1 degrees centigrade. His last weight was 80.6 kg for a body mass index of 24.1. GENERAL: This is a well-nourished, well-developed man , appears his chronologic age, lying in bed, alternately closing either eye, cooperative, and in no acute distress. HEENT: Extraocular movements are intact. Pupils are equal, round, reactive to light. Mucous membranes are moist. Dentition is in good condition. NECK: Supple. HEART: There is a regular rate and rhythm with no murmurs, rubs, or gallops. LUNGS: Clear to auscultation bilaterally. ABDOMEN: Soft, nontender, nondistended with normoactive bowel sounds and no hepatosplenomegaly. EXTREMITIES: There is no cyanosis, clubbing, or edema. NEUROLOGIC: He is alert. He is oriented to his general situation, but not to the date or the month. Cranial nerves 2-12 are grossly intact. There is no focal weakness. Sensation is intact to light touch. He arises spontaneously from seated with minor loss of balance, which he spontaneously corrects. He is fatigued and wishes to lie down, which truncates the neurologic exam. SKIN: There is a well-approximated craniotomy over the right frontal and parietal region. CURRENT LEVEL OF FUNCTION: Per the pre-admission screen: Regarding diet, feeding, and swallowing, he was on a regular diet. Regarding grooming, he needed standby assist to brush his teeth. Dressing was done seated with setup. He was noted to be mildly impulsive with decreased safety while doing the task. Toilet transfer was accomplished with contact guard assist. He was independent with pericare. He was continent of bowel and bladder. Bed mobility required contact guard. Transfers required contact guard with voice cuing. He required contact guard for assistance with balance. His endurance was fair. He ambulated 125 feet with contact guard and voice cues. He had a shuffling gait, but would respond to cues for a higher step. Communication and cognitive deficits were considered moderate to severe. Current exam is consistent with the preadmission screen. IMPRESSION: This is a 52-year-old previously healthy man who developed headaches and had brain imaging which showed a right frontal mass. He had surgery on 09/28/2017, with resection of an 8 cm right frontal mass. Hospitalization was complicated by encephalopathy manifested as somnolence, headache pain, nausea, and constipation. He has had improvement in his symptoms and was participating in therapies and appropriate for inpatient rehabilitation. His goal is to complete a rehabilitation stay and then return home with his family and supportive services. For a safe discharge, it is anticipated that he will be independent with grooming, bathing, dressing, and all functional activities. He will need to have a good knowledge of compensatory strategies for cognitive impairments and photosensitivity. He will have therapy with Physical Therapy, Occupational Therapy, and Speech and Language Pathology for 60 minutes per day per discipline on 5-7 days of the week. His expected duration of stay is 5-7 days. It is anticipated that after discharge he will continue to benefit from outpatient [facility] and brain injury support group. PLAN: 1. Debility status post resection of 8 cm right frontal tumor with initial pathology consistent with low-grade glioma. PT and OT to optimize mobility and ADLs with goal of independence in ADLs and mobility. 2. Cognitive impairment and encephalopathy status post resection of right frontal brain tumor. Assessment and treatment per Speech and Language Pathology. 3. Headache. He reports he has had the best results with Fioricet in terms of treating the pain. Acetaminophen and hydrocodone/acetaminophen are also ordered. I will discontinue the hydrocodone/acetaminophen combination medication as he would likely get too much acetaminophen with concurrent Fioricet. I have ordered oxycodone 2.5 to 10 mg q.3 hours p.r.n. He will be assessed, and medications can be adjusted as needed. 4. Midline shift and brain edema. Continue dexamethasone taper as ordered out of the hospital. Dexamethasone will be completed on 10/13/2017. 5. Risk for seizures. Continue levetiracetam. Duration of levetiracetam will be determined by Neurosurgery. 6. Prophylaxis. He is young, and he is mobile. He is likely low risk. I will not order any pharmacologic prophylaxis at this time. If his mobility is less than ambulating 150 feet 3 times a day, will consider initiation of pharmacologic anticoagulation. Will order sequential compression devices for his legs at night. FOLLOW UP: He will follow up with neurosurgeon, Dr. Kodi Olguin. Followup is ordered for 10 days from now, and he can follow up with his primary care provider, Dr. Jarrett Delarosa, after his discharge. /[id number]/MODL MTDD
[2017-10-04] MEDS: ACET/CAFFEINE/BUTA FIORICET 1 EACH TAB PO PRN (16:55)
[2017-10-04] MEDS: DEXAMETHASONE 2 MG TAB PO SCH (17:48)
[2017-10-04] MEDS: SENNOSIDES/DOCUSATE SODIUM TAB PO SCH (21:21)
[2017-10-04] MEDS: oxyCODONE IR 5 MG TAB PO PRN ×2 (21:21→22:28)
[2017-10-04] MEDS: levETIRAcetam 500 MG TAB PO SCH (21:21)
[2017-10-04] MEDS: ACETAMINOPHEN 325 MG TAB PO PRN (22:27)
[2017-10-05] MEDS: ACET/CAFFEINE/BUTA FIORICET 1 EACH TAB PO PRN ×2 (06:20→14:43)
[2017-10-05 08:13] LABS: PLATELET COUNT 281 10^3/uL (150-400)
[2017-10-05] MEDS ORDERED: TAMSULOSIN HCL 0.4 MG CAP PO ONE (08:45)
[2017-10-05] MEDS: levETIRAcetam 500 MG TAB PO SCH ×2 (08:55→20:06)
[2017-10-05] MEDS: oxyCODONE IR 5 MG TAB PO PRN ×2 (08:55→17:23)
[2017-10-05] MEDS: DEXAMETHASONE 2 MG TAB PO SCH ×2 (08:55→17:24)
[2017-10-05] MEDS: SENNOSIDES/DOCUSATE SODIUM TAB PO SCH ×2 (08:55→20:06)
[2017-10-05] MEDS ORDERED: NON-FORMULARY NEW DRUG PO SCH (09:00)
[2017-10-05] MEDS: MVI PO SCH (09:26)
[2017-10-05] MEDS: ALIVE PO SCH (09:26)
--- NOTE | 2017-10-05 13:32 | SOAPPROG ---
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 * PT and OT to optimize mobility and ADLs with goal of independence in ADLs and mobility. * Cognitive impairment and encephalopathy status post resection of right frontal brain tumor. * Assessment and treatment per Speech and Language Pathology. * Headache. He reports he has had the best results with Fioricet in terms of treating the pain. * Continue Fioricet, acetaminophen and oxycodone 2.5 to 10 mg q.3 hours p.r.n. * Stiff neck and low grade fever. Presentation not otherwise consistent with meningitis. Procalcitonin added to labs 10/05/2017, not elevated. * D/W Dr. Olguin, Neurosurgery. Observe for consistent fever >38.5 or for mental status changes. * Urinary retention. * Tamsulosin begun 10/05/2017 at 0.4 mg QD. * Continue bladder scanning and catheterization for PVR > 400. * Consider placing Cool if he does not begin to void * UA pending. * Hyponatremia, mild. * PO intake is too low for water restriction. * Continue to monitor. Recheck BMP in AM 10/06/2017. * Midline shift and brain edema. Continue dexamethasone taper as ordered out of the hospital. Dexamethasone will be completed on 10/13/2017. * Risk for seizures. Continue levetiracetam. Duration of levetiracetam will be determined by Neurosurgery. * prophylaxis. He is relatively young and with good mobility. If his mobility is less than 150 ft 3 times a day, consider initiation of pharmacologic anticoagulation. Will order sequential compression devices for his legs at night. FOLLOW UP: He will follow up with neurosurgeon, Dr. Kodi Olguin. Followup is ordered for 10 days from now, and he can follow up with his primary care provider, Dr. Jarrett Delarosa, after his discharge. 10/05/17 13:36 Subjective: Complains of stiff neck this morning. Also has general body aches. No cough or dyspnea. Nurses have recorded a low-grade fever but he does not feel feverish. Has reduced appetite. Has had urinary retention and needed catheterization x2. Objective: Vital Signs Temp Pulse Resp BP Pulse Ox 37.3 C 67 15 152/97 H 96 10/05/17 07:40 10/05/17 07:40 10/05/17 07:40 10/05/17 07:40 10/05/17 07:40 Laboratory Results 10/05/17 06:30 10/05/17 06:30 10/04/17 10/05/17 10/06/17 05:59 05:59 05:59 Intake Total 200 360 Output Total 1250 650 Balance -1050 -290 - Time Spent With Patient Time Spent With Patient: Greater than 35 min floor time today, including phone discussion with Neurosurgeon Dr. Wilkinson and counseling with patient and his sister. Physical Exam - Physical Exam General Appearance: WD/WN, alert, no apparent distress Neck: non-tender, other (ROM limited in all directions) Respiratory: normal breath sounds, No crackles, No rhonchi, No wheezing Cardiac/Chest: regular rate, rhythm, No edema, No diastolic murmur, No systolic murmur Skin: normal color, warm/dry Neuro/Psych: alert, normal mood/affect, abnormal gait (slightly wide-based, pes planus on R) ICD10 Worksheet Patient Problems: Problems Problem Status Onset Cephalgia Acute Right frontal lobe mass Acute
[2017-10-05] MEDS ORDERED: SALONPAS PAIN TP PRN (16:55)
[2017-10-06] MEDS: oxyCODONE IR 5 MG TAB PO PRN ×4 (00:46→18:37)
[2017-10-06] MEDS: ACET/CAFFEINE/BUTA FIORICET 1 EACH TAB PO PRN (06:10)
[2017-10-06] MEDS: BISACODYL 10 MG SUPP PR PRN (06:15)
[2017-10-06] MEDS: levETIRAcetam 500 MG TAB PO SCH ×2 (07:53→20:29)
[2017-10-06] MEDS: SENNOSIDES/DOCUSATE SODIUM TAB PO SCH ×2 (07:54→20:29)
[2017-10-06] MEDS: TAMSULOSIN HCL 0.4 MG CAP PO SCH (07:54)
[2017-10-06] MEDS: DEXAMETHASONE 2 MG TAB PO SCH ×2 (07:55→18:42)
[2017-10-06] MEDS: ALIVE PO SCH (07:57)
[2017-10-06] MEDS: MVI PO SCH (07:57)
[2017-10-06 08:39] LABS: PLATELET COUNT 310 10^3/uL (150-400)
[2017-10-06] MEDS ORDERED: SALONPAS PAIN TP PRN (12:30)
--- NOTE | 2017-10-06 13:29 | SOAPPROG ---
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 * PT and OT to optimize mobility and ADLs with goal of independence in ADLs and mobility. PER TEAM ROUNDS TODAY, PT STATES THAT PATIENT INTERMITTENTLY COMPLAINS OF DIFFUSE ACHING ALONG WITH INTERMITTENT NECK PAIN. PERFORMANCE DURING THERAPY IS INCONSISTENT SECONDARY TO POOR INITIATION AND SLOW PROCESSING. HE HAS A WIDE-BASED, WEAVING IT GAIT. HE REQUIRES CONTACT GUARD/ BALANCE CUING WHILE WALKING. * Cognitive impairment and encephalopathy status post resection of right frontal brain tumor. * Assessment and treatment per Speech and Language Pathology. ABULIA CONSISTENT WITH EXTENT OF REMOVAL OF FRONTAL LOBE TUMOR * Headache. He reports he has had the best results with Fioricet in terms of treating the pain. * Continue Fioricet, acetaminophen and oxycodone 2.5 to 10 mg q.3 hours p.r.n. * NO EVIDENCE OF NUCHAL RIGIDITY. MOST RECENT TEMPERATURE WAS 36.7. HIS WHITE COUNT THIS MORNING WAS AT 20.02 WHICH WAS INCREASED FROM 14.77 ON YESTERDAY'S DRAW. NO OVERT SIGNS OF INFECTION, SCALP INCISION LOOKS CLEAN, LUNGS ARE CLEAR. MOST RECENT URINALYSIS WAS NEGATIVE. DISCUSSED WITH DR. LICHA OLGUIN WHO AGREED THAT A HEAD CT MOST LIKELY NOT NECESSARY AT THIS TIME BUT AGREED THAT ONE SHOULD BE OBTAINED IF HIS MENTAL STATUS DETERIORATES OR HE AND DEVELOPS A TEMPERATURE GREATER THAN 38.5 . *BLADDER PROGRAM * Tamsulosin begun 10/05/2017 at 0.4 mg QD. * Continue bladder scanning and catheterization for PVR > 400. * Consider placing Cool if he does not begin to void * UA FROM YESTERDAY WAS NEGATIVE. * Hyponatremia, mild. * PO intake is too low for water restriction. * BMP THIS MORNING SHOWED SODIUM 136, POTASSIUM 4.6, BUN 21 CREATININE 0.9. * Midline shift and brain edema. Continue dexamethasone taper as ordered out of the hospital. Dexamethasone will be completed on 10/13/2017. * Risk for seizures. Continue levetiracetam. Duration of levetiracetam will be determined by Neurosurgery. * prophylaxis. He is relatively young and with good mobility. If his mobility is less than 150 ft 3 times a day, consider initiation of pharmacologic anticoagulation. Will order sequential compression devices for his legs at night. * INSOMNIA-REPORTED BY REHAB STAFF AND AND THERE ALSO REPORTS THAT PATIENT FREQUENTLY LOOKS REPLACED TO LAY DOWN DURING THERAPY SESSIONS AND IS INTERMITTENTLY SOMNOLENT. AT SOME POINT MAY WANT TO CONSIDER MILD SLEEP AID, POSSIBLY MELATONIN. FOLLOW UP: He will follow up with neurosurgeon, Dr. Licha Olguin. Followup is ordered for 10 days from now, and he can follow up with his primary care provider, Dr. Jarrett Delarosa, after his discharge. Plan: 10/06/17 13:30 Subjective: THE PATIENT IS NOT VERBALIZING DURING AT TODAY'S BEDSIDE EXAMINATION. MUCH OF THE CURRENT HISTORY WAS PROVIDED BY THE TEAM DURING REHAB ROUNDS AND BY HIS SISTER WHO WAS PRESENT DURING MY EVALUATION OF HIM TODAY. HIS SISTER REPORTS THAT HIS COGNITIVE STATUS SEEMS TO WAX AND WANE. THIS WAS ALSO VERIFIED BY THE ENTIRE REHAB TEAM Objective: Vital Signs Temp Pulse Resp BP Pulse Ox 36.7 C 74 18 144/87 H 95 10/06/17 06:01 10/06/17 06:01 10/06/17 06:01 10/06/17 06:01 10/06/17 06:01 Laboratory Results 10/06/17 06:10 10/06/17 06:10 10/05/17 10/06/17 10/07/17 05:59 05:59 05:59 Intake Total 200 848 Output Total 1250 1950 530 Balance -1050 -1102 -530 Physical Exam - Physical Exam General Appearance: WD/WN, no apparent distress, other (FOLLOWS VERBAL COMMANDS WITH SOME COAXING.) Neck: non-tender, supple, No Kernig's sign Respiratory: lungs clear, normal breath sounds Cardiac/Chest: No edema Abdomen: non-tender, soft, other (NO SUPRAPUBIC TENDERNESS) Skin: other (SCALP INCISION IS HEALING WELL AND WITHOUT DRAINAGE.) Neuro/Psych: cognition abnormalities, speech abnormalities (ABULIA) ICD10 Worksheet Patient Problems: Problems Problem Status Onset Cephalgia Acute Right frontal lobe mass Acute
[2017-10-06] MEDS ORDERED: CALCIUM CARBONATE 500 MG CHEWABLE TAB PO PRN (21:00)
[2017-10-07] MEDS: ACET/CAFFEINE/BUTA FIORICET 1 EACH TAB PO PRN (06:19)
[2017-10-07 07:13] LABS: PLATELET COUNT 288 10^3/uL (150-400)
[2017-10-07] MEDS: MVI PO SCH (08:38)
[2017-10-07] MEDS: ALIVE PO SCH (08:38)
[2017-10-07] MEDS: TAMSULOSIN HCL 0.4 MG CAP PO SCH (08:39)
[2017-10-07] MEDS: SENNOSIDES/DOCUSATE SODIUM TAB PO SCH ×2 (08:39→20:21)
[2017-10-07] MEDS: levETIRAcetam 500 MG TAB PO SCH ×2 (08:40→20:21)
[2017-10-07] MEDS: DEXAMETHASONE 2 MG TAB PO SCH (08:40)
--- NOTE | 2017-10-07 10:45 | SOAPPROG ---
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 * PT and OT to optimize mobility and ADLs with goal of independence in ADLs and mobility. * HAVE ASKED NURSING TO HAVE PATIENT GET UP AND WALK WITH ASSISTANCE OF NURSING STAFF OR THERAPY STAFF SEVERAL TIMES PER DAY IN BETWEEN THERAPY SESSIONS. * Cognitive impairment and encephalopathy status post resection of right frontal brain tumor. * Assessment and treatment per Speech and Language Pathology. ABULIA CONSISTENT WITH EXTENT OF REMOVAL OF FRONTAL LOBE TUMOR * Headache. He reports he has had the best results with Fioricet in terms of treating the pain. * Continue Fioricet, acetaminophen and oxycodone 2.5 to 10 mg q.3 hours p.r.n. * LEUKOCYTOSIS-WHITE BLOOD COUNT THIS A.M. WAS 17.56, DOWN FROM 20.02 ON 10/06. CURRENT TEMPERATURE 37.0. WITH DECREASING WHITE COUNT AND NO WORSENING OF MENTAL STATUS, HYDROCEPHALUS AND INFECTION UNLIKELY. *BLADDER PROGRAM-DISCUSSED WITH NURSING TO CUE PATIENT TO URINARY VOID EVERY 2 HR. * Tamsulosin begun 10/05/2017 at 0.4 mg QD. * Continue bladder scanning and catheterization for PVR > 400. * Consider placing Cool if he does not begin to void * UA FROM YESTERDAY WAS NEGATIVE. * Hyponatremia, mild. * PO intake is too low for water restriction. * BMP YESTERDAY SHOWED SODIUM 136, POTASSIUM 4.6, BUN 21 CREATININE 0.9. * Midline shift and brain edema. Continue dexamethasone taper as ordered out of the hospital. Dexamethasone will be completed on 10/13/2017. * Risk for seizures. Continue levetiracetam. Duration of levetiracetam will be determined by Neurosurgery. * prophylaxis. He is relatively young and with good mobility. If his mobility is less than 150 ft 3 times a day, consider initiation of pharmacologic anticoagulation. Will order sequential compression devices for his legs at night. * INSOMNIA-MONITOR FOR NOW, CONSIDER MELATONIN FOLLOW UP: He will follow up with neurosurgeon, Dr. Kodi Olguin. Followup is ordered for 10 days from now, and he can follow up with his primary care provider, Dr. Jarrett Delarosa, after his discharge. Plan: 10/06/17 13:30 10/07/17 10:45 Subjective: HE REPORTS THAT HE ACHES ALL OVER. HE REPORTS THAT HIS HEADACHES ARE WELL MANAGED. NURSING REPORTS HE HAS ADMITTED GOOD HEADACHE PAIN RELIEF WITH FIORICET. NURSING REPORTS THAT HE WAS CATHED LAST P.M. FOR 4-500 CC, HE HAD A VOLUNTARY VOID THIS MORNING OF 600 CC. Objective: Vital Signs Temp Pulse Resp BP Pulse Ox 37.0 C 102 H 18 121/96 H 95 10/07/17 08:00 10/07/17 08:00 10/07/17 08:00 10/07/17 08:00 10/07/17 08:00 Laboratory Results 10/07/17 06:00 10/06/17 06:10 10/06/17 10/07/17 10/08/17 05:59 05:59 05:59 Intake Total 848 800 440 Output Total 1513 1880 650 Balance -1102 -730 -210 Physical Exam - Physical Exam General Appearance: WD/WN, alert EENT: other (INTERMITTENTLY CLOSES LEFT EYE.) Respiratory: lungs clear, normal breath sounds Cardiac/Chest: No edema Abdomen: non-tender, soft Skin: warm/dry Neuro/Psych: no motor/sensory deficits (HE MOVES ALL 4 EXTREMITIES ON VERBAL COMMAND. DIFFICULT TO ASCERTAIN EXACT STRENGTH OF LOWER EXTREMITIES DUE TO SOME NONCOMPLIANCE DURING EXAM, HOWEVER HE DEMONSTRATES BETTER THAN ANTIGRAVITY STRENGTH OF THE RIGHT AND LEFT HIP FLEXORS, QUADRICEPS, HAMSTRINGS AND ANKLE DORSIFLEXORS.), alert, other (HE WAS ABLE TO RECITE DATE, MONTH, YEAR AND IDENTIFIED CURRENT EVENTS "A BUNCH OF PEOPLE GETTING KILLED IN [place]"COULD NOT IDENTIFY THE PRESIDENT BY NAME) ICD10 Worksheet Patient Problems: Problems Problem Status Onset Cephalgia Acute Right frontal lobe mass Acute
[2017-10-07] MEDS: oxyCODONE IR 5 MG TAB PO PRN (10:50)
[2017-10-07] MEDS: ACETAMINOPHEN 325 MG TAB PO PRN ×3 (10:50→22:36)
[2017-10-08] MEDS: ALIVE PO SCH (08:12)
[2017-10-08] MEDS: MVI PO SCH (08:12)
[2017-10-08] MEDS: DEXAMETHASONE 2 MG TAB PO SCH (08:13)
[2017-10-08] MEDS: TAMSULOSIN HCL 0.4 MG CAP PO SCH (08:13)
[2017-10-08] MEDS: levETIRAcetam 500 MG TAB PO SCH ×2 (08:13→20:13)
[2017-10-08] MEDS: ACETAMINOPHEN 325 MG TAB PO PRN ×2 (08:13→14:04)
[2017-10-08] MEDS: SENNOSIDES/DOCUSATE SODIUM TAB PO SCH ×2 (08:13→20:13)
[2017-10-08] MEDS ORDERED: DEXAMETHASONE 2 MG TAB PO SCH (09:00)
--- NOTE | 2017-10-08 12:16 | SOAPPROG ---
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 * PT and OT to optimize mobility and ADLs with goal of independence in ADLs and mobility. * HAVE ASKED NURSING TO HAVE PATIENT GET UP AND WALK WITH ASSISTANCE OF NURSING STAFF OR THERAPY STAFF SEVERAL TIMES PER DAY IN BETWEEN THERAPY SESSIONS. * Cognitive impairment and encephalopathy status post resection of right frontal brain tumor. * Assessment and treatment per Speech and Language Pathology. ABULIA CONSISTENT WITH EXTENT OF REMOVAL OF FRONTAL LOBE TUMOR. Will discuss with team during rehab rounds tomorrow as to whether patient would benefit from low- dose stimulant. * Headache. He reports he has had the best results with Fioricet in terms of treating the pain. * Continue Fioricet, acetaminophen and oxycodone 2.5 to 10 mg q.3 hours p.r.n. * LEUKOCYTOSIS-WHITE BLOOD COUNT 0n 10/07 WAS 17.56, DOWN FROM 20.02 ON 10/06. CURRENT TEMPERATURE 98.8. WITH DECREASING WHITE COUNT AND NO WORSENING OF MENTAL STATUS, HYDROCEPHALUS AND INFECTION UNLIKELY. *BLADDER PROGRAM-DISCUSSED WITH NURSING TO CUE PATIENT TO URINARY VOID EVERY 2 HR. Voluntary voiding continues to be inconsistent but have urged nursing to continue cuing him q.2 hours for voluntary voids. Although he had 2 large catheterizations last p.m., would like to avoid reinserting Cool catheter. * Tamsulosin begun 10/05/2017 at 0.4 mg QD. * Continue bladder scanning and catheterization for PVR > 400. * Consider placing Cool if he does not begin to void * UA FROM YESTERDAY WAS NEGATIVE. * Hyponatremia, mild. * PO intake is too low for water restriction. * BMP YESTERDAY SHOWED SODIUM 136, POTASSIUM 4.6, BUN 21 CREATININE 0.9. * * Midline shift and brain edema. Continue dexamethasone taper as ordered out of the hospital. Dexamethasone will be completed on 10/13/2017. WILL ORDER BMP FOR TODAY. * Risk for seizures. Continue levetiracetam. Duration of levetiracetam will be determined by Neurosurgery. * prophylaxis. He is relatively young and with good mobility. If his mobility is less than 150 ft 3 times a day, consider initiation of pharmacologic anticoagulation. Will order sequential compression devices for his legs at night. * INSOMNIA-MONITOR FOR NOW, CONSIDER MELATONIN FOLLOW UP: He will follow up with neurosurgeon, Dr. Kodi Olguin. Followup is ordered for 10 days from now, and he can follow up with his primary care provider, Dr. Jarrett Delarosa, after his discharge. Plan: 10/06/17 13:30 10/07/17 10:45 10/08/17 12:16 Subjective: He does not verbalize any complaints today except for some itching at his scalp suture line. No problems reported by nursing. He was cathed last night twice for volumes of 600 cc. Nursing also reports he is somewhat restless at night. Therapy reports that he is able to participate in therapies without too much difficulty. Objective: Vital Signs Temp Pulse Resp BP Pulse Ox 37.0 C 103 H 18 123/99 H 95 10/08/17 08:00 10/08/17 08:00 10/08/17 08:00 10/08/17 08:00 10/08/17 08:00 Laboratory Results 10/07/17 06:00 10/06/17 06:10 10/07/17 10/08/17 10/09/17 05:59 05:59 05:59 Intake Total 800 1680 780 Output Total 1530 2250 0 Balance -730 -570 780 Physical Exam - Physical Exam General Appearance: WD/WN, alert, mild distress EENT: other (Continues to hold left eye shut intermittently. Denies diplopia. Denies) Respiratory: lungs clear, normal breath sounds Cardiac/Chest: No edema Abdomen: non-tender, soft, other (No suprapubic tenderness) Skin: normal color, warm/dry Neuro/Psych: motor weakness (Lower extremities greater than upper extremities particular involving hip flexors while supine. 4/5 right and left quadriceps and hamstrings. Ambulates in hallway with standby assist. Slight decreased trunk strength noted, fairly good knee and ankle stability.), cognition abnormalities ICD10 Worksheet Patient Problems: Problems Problem Status Onset Cephalgia Acute Right frontal lobe mass Acute
[2017-10-08] MEDS: BISACODYL 10 MG SUPP PR PRN (22:30)
[2017-10-09] MEDS: levETIRAcetam 500 MG TAB PO SCH ×2 (08:55→20:05)
[2017-10-09] MEDS: DEXAMETHASONE 2 MG TAB PO SCH (08:55)
[2017-10-09] MEDS: SENNOSIDES/DOCUSATE SODIUM TAB PO SCH ×2 (08:57→20:06)
[2017-10-09] MEDS: TAMSULOSIN HCL 0.4 MG CAP PO SCH (08:57)
[2017-10-09] MEDS: MVI PO SCH (09:00)
[2017-10-09] MEDS: ALIVE PO SCH (09:00)
[2017-10-09] MEDS: ACETAMINOPHEN 325 MG TAB PO PRN ×2 (12:02→17:26)
--- NOTE | 2017-10-09 16:51 | SOAPPROG ---
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 * PT and OT to optimize mobility and ADLs with goal of independence in ADLs and mobility. * HAVE ASKED NURSING TO HAVE PATIENT GET UP AND WALK WITH ASSISTANCE OF NURSING STAFF OR THERAPY STAFF SEVERAL TIMES PER DAY IN BETWEEN THERAPY SESSIONS. * Decreased breath sounds-he is not moving air and this also appears to be volitional. However will obtain PA and lateral chest x-ray tomorrow morning. * Cognitive impairment and encephalopathy status post resection of right frontal brain tumor. * Assessment and treatment per Speech and Language Pathology. ABULIA CONSISTENT WITH EXTENT OF REMOVAL OF FRONTAL LOBE TUMOR. Consider low-dose stimulant. * DECREASED RANGE OF MOTION RIGHT HIP-WILL OBTAIN ALKALINE PHOSPHATASE LEVEL TO RULE OUT HETEROTOPIC OSSIFICATION * Headache. He reports he has had the best results with Fioricet in terms of treating the pain. * Continue Fioricet, acetaminophen and oxycodone 2.5 to 10 mg q.3 hours p.r.n. * LEUKOCYTOSIS-WHITE BLOOD COUNT 0n 10/07 WAS 17.56, DOWN FROM 20.02 ON 10/06. CURRENTLY AFEBRILE *BLADDER PROGRAM-DISCUSSED WITH NURSING TO CUE PATIENT TO URINARY VOID EVERY 2 HR. Voluntary voiding continues to be inconsistent but have urged nursing to continue cuing him q.2 hours for voluntary voids. Although he had 2 large catheterizations last p.m., would like to avoid reinserting Cool catheter. * Tamsulosin begun 10/05/2017 at 0.4 mg QD. * Continue bladder scanning and catheterization for PVR > 400. * Consider placing Cool if he does not begin to void * EARLY THIS MORNING HE VOIDED 300 CC, POST RESIDUAL SCAN WAS 150. PATIENT'S IRREGULAR VOIDING PATTERN MOST LIKELY VOLITIONAL AND PROBABLY NOT ASSISTANT MEN'S LACROSSE COACH OF VSD. * Hyponatremia, SODIUM IS BORDERLINE LOW AT 133. SERUM OSMOLALITY WAS 279. URINE SODIUM WAS 33. URINE OSMOLALITY WAS 551. THIS IS MOST CONSISTENT WITH MILD SIADH. WILL LIMIT FLUID INTAKE TO 1 L PER DAY. * Midline shift and brain edema. Continue dexamethasone taper as ordered out of the hospital. Dexamethasone will be completed on 10/13/2017. WILL ORDER BMP FOR TODAY. * Risk for seizures. Continue levetiracetam. Duration of levetiracetam will be determined by Neurosurgery. * prophylaxis. He is relatively young and with good mobility. If his mobility is less than 150 ft 3 times a day, consider initiation of pharmacologic anticoagulation. Will order sequential compression devices for his legs at night. * INSOMNIA-MONITOR FOR NOW, CONSIDER MELATONIN FOLLOW UP: He will follow up with neurosurgeon, Dr. Kodi Olguin. Followup is ordered for 10 days from now, and he can follow up with his primary care provider, Dr. Jarrett Delarosa, after his discharge. Plan: 10/06/17 13:30 10/07/17 10:45 10/08/17 12:16 10/09/17 16:52 Subjective: He continues to complain of diffuse myalgias particularly in his back and pelvic girdle region. Nursing reports that he is also having some leg cramps. No change in mental status per the nursing and therapy staff. He has been participating in therapies without much difficulty. Objective: Vital Signs Temp Pulse Resp BP Pulse Ox 37.4 C 70 16 132/85 H 93 10/09/17 13:38 10/09/17 06:05 10/09/17 06:05 10/09/17 06:05 10/09/17 06:05 Laboratory Results 10/07/17 06:00 10/09/17 06:12 10/08/17 10/09/17 10/10/17 05:59 05:59 05:59 Intake Total 1680 1620 1190 Output Total 2250 1150 350 Balance -570 470 840 Physical Exam - Physical Exam General Appearance: alert, no apparent distress Respiratory: decreased breath sounds (Secondary to poor volition. No obvious rales or rhonchi or crackles.), No splinting, No pain on movement Cardiac/Chest: regular rate, rhythm, No edema Abdomen: non-tender, soft Extremities: other (Decreased internal rotation right hip), No swelling, No Priyank's sign Neuro/Psych: motor weakness (4/5 motor strength upper and lower extremities. 4- /5 right and left hip flexors.) ICD10 Worksheet Patient Problems: Problems Problem Status Onset Cephalgia Acute Right frontal lobe mass Acute
[2017-10-09] MEDS ORDERED: TAMSULOSIN HCL 0.4 MG CAP PO ONE (17:56)
[2017-10-09] MEDS: oxyCODONE IR 5 MG TAB PO PRN (20:06)
[2017-10-10] MEDS ORDERED: CALCIUM CARBONATE 500 MG CHEWABLE TAB PO ONE (03:06)
[2017-10-10] MEDS ORDERED: CALCIUM CARBONATE 500 MG CHEWABLE TAB PO PRN (03:15)
[2017-10-10] MEDS: SENNOSIDES/DOCUSATE SODIUM TAB PO SCH ×2 (08:24→21:07)
[2017-10-10] MEDS: levETIRAcetam 500 MG TAB PO SCH ×2 (08:25→21:07)
[2017-10-10] MEDS: DEXAMETHASONE 2 MG TAB PO SCH (08:25)
[2017-10-10] MEDS: TAMSULOSIN HCL 0.4 MG CAP PO SCH (08:25)
[2017-10-10] MEDS: MVI PO SCH (08:29)
[2017-10-10] MEDS: ALIVE PO SCH (08:29)
[2017-10-10] MEDS: ACET/CAFFEINE/BUTA FIORICET 1 EACH TAB PO PRN (13:38)
--- NOTE | 2017-10-10 13:50 | SOAPPROG ---
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 * PT and OT to optimize mobility and ADLs with goal of independence in ADLs and mobility. * Cognitive impairment and encephalopathy status post resection of right frontal brain tumor. * Assessment and treatment per Speech and Language Pathology. * Pain and decreased ROM in hips * Appears to have normal gait. * Alkaline phosphatase was normal; doubt heterotopic calcification. * Continue efforts of PT. * Headache. He reports he has had the best results with Fioricet in terms of treating the pain. * Continue Fioricet, acetaminophen and oxycodone 2.5 to 10 mg q.3 hours p.r.n. No Fioricet use since 10/07/2017. * Urinary retention. * Tamsulosin begun 10/05/2017 at 0.4 mg QD, titrated to 0.8 mg beginning 2017. * Continue bladder scanning and catheterization for PVR > 400. * Improving. * UA negative for infection. * Hyponatremia, mild. * On 1000 cc per day water restriction. * Recheck BMP in AM 10/11/2017. * Stiff neck and low grade fever. Presentation not otherwise consistent with meningitis. Procalcitonin added to labs 10/05/2017, not elevated. * D/W Dr. Olguin, Neurosurgery. Observe for consistent fever >38.5 or for mental status changes. * Symptoms resolved. * Midline shift and brain edema. Continue dexamethasone taper as ordered out of the hospital. Dexamethasone will be completed on 10/13/2017. * Risk for seizures. Continue levetiracetam. Duration of levetiracetam will be determined by Neurosurgery. * prophylaxis. He is relatively young and with good mobility. If his mobility is less than 150 ft 3 times a day, consider initiation of pharmacologic anticoagulation. Will order sequential compression devices for his legs at night. FOLLOW UP: He will follow up with neurosurgeon, Dr. Kodi Olguin. Followup is ordered for 10/14/2017, and he can follow up with his primary care provider, Dr. Jarrett Delarosa, after his discharge. Staffing and family conference plan for 10/11/2017. Tentative discharge plan for 10/13/2017. 10/10/17 13:36 Subjective: Complains of bilateral thigh pain and tenderness. Thinks it is because he has not been active enough. Heating pad helps. Staff note reduced initiation of activities. Objective: Vital Signs Temp Pulse Resp BP Pulse Ox 37.1 C 100 15 116/86 H 93 10/10/17 08:00 10/10/17 08:00 10/10/17 08:00 10/10/17 08:00 10/10/17 08:00 Laboratory Results 10/07/17 06:00 10/09/17 06:12 10/09/17 10/10/17 10/11/17 05:59 05:59 05:59 Intake Total 1620 1640 712 Output Total 1150 1050 250 Balance 470 590 462 Physical Exam - Physical Exam General Appearance: WD/WN, alert, no apparent distress Respiratory: No respiratory distress, No accessory muscle use Skin: normal color, warm/dry Neuro/Psych: no motor/sensory deficits, alert, normal mood/affect, other ( Reduced elaboration and simple conception of issues regarding discharge) ICD10 Worksheet Patient Problems: Problems Problem Status Onset Cephalgia Acute Right frontal lobe mass Acute
--- NOTE | 2017-10-10 17:23 | PDOREHIP ---
Admission [facility] - Admission - 3 Day Assessment Period Admission Date/Day 1: 10/04/17 Day 2: 10/05/17 Day 3: 10/06/17 - Active Diagnoses Comorbidities and Co-existing Conditions at Admission: [address]. None of the Above - Skin Conditions Unhealed Pressure Ulcer (1 or more/Stage 1 or >)-Admission: 0. No (Late entry) Discharge [facility] - Discharge - 3 Day Assessment Period 2 Days Prior to Anticipated Discharge Date: 10/11/17 1 Day Prior to Anticipated Discharge Date: 10/12/17 Anticipated Discharge Date: 10/13/17
[2017-10-10] MEDS: ACETAMINOPHEN 325 MG TAB PO PRN (21:11)
[2017-10-11] MEDS: DEXAMETHASONE 2 MG TAB PO SCH (09:12)
[2017-10-11] MEDS: TAMSULOSIN HCL 0.4 MG CAP PO SCH (09:13)
[2017-10-11] MEDS: levETIRAcetam 500 MG TAB PO SCH ×2 (09:13→20:47)
[2017-10-11] MEDS: ACET/CAFFEINE/BUTA FIORICET 1 EACH TAB PO PRN (09:13)
[2017-10-11] MEDS: SENNOSIDES/DOCUSATE SODIUM TAB PO SCH ×2 (09:14→20:47)
[2017-10-11] MEDS: MVI PO SCH (09:15)
[2017-10-11] MEDS: ALIVE PO SCH (09:15)
--- NOTE | 2017-10-11 12:06 | SOAPPROG ---
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 * Initial functional independence measure 66 on 10/06/2017. Improved to 79 as of 10/11/2017. Has ambulated 1000 ft standby assist with trekking pole. Negotiate steps with close standby assistance and cues. Dressing requires setup. He needs cues to sit for safety and does not retain strategies. * Continue PT and OT to optimize mobility and ADLs with goal of independence in ADLs and mobility. * Cognitive impairment and encephalopathy status post resection of right frontal brain tumor. * Dysexecutive, stimulus bound. Impulsive and sometimes perseverative. Decreased recall which is improving. Decreased attention and executive function. OLOG . Will need continued structure for safety. * Continue Speech and Language Pathology. * Back pain and decreased ROM in hips * Appears to have normal gait. * Alkaline phosphatase was normal; doubt heterotopic calcification. * Continue efforts of PT. * Headache. He reports he has had the best results with Fioricet in terms of treating the pain. * Continue Fioricet, typically given in the morning for headache, and acetaminophen for back/leg pain. Not using oxycodone. * Urinary retention. * Tamsulosin begun 10/05/2017 at 0.4 mg QD, titrated to 0.8 mg beginning 2017. * Continue bladder scanning and catheterization for PVR > 400. * Improving. * UA negative for infection. * Hyponatremia, mild. * On 1000 cc per day water restriction. Has not been maintaining fluid restriction. * Sodium stable at 133 on BMP 10/11/2017. Will liberalize fluid restriction to 1500 cc. Recheck BMP on 10/13/2017. * Stiff neck and low grade fever. Presentation not otherwise consistent with meningitis. Procalcitonin added to labs 10/05/2017, not elevated. * D/W Dr. Olguin, Neurosurgery. Observe for consistent fever >38.5 or for mental status changes. * Symptoms resolved. * Midline shift and brain edema. Continue dexamethasone taper as ordered out of the hospital. Dexamethasone will be completed on 10/13/2017. * Risk for seizures. Continue levetiracetam. Duration of levetiracetam will be determined by Neurosurgery. * Prophylaxis. He is relatively young and with good mobility. No need for pharmacologic DVT prophylaxis. Attended staffing, 15 min. Discussed with case management, dietitian, nursing, PT, OT, PL[employer] SCI[employer] PROFESSOR. Attended family conference, 30 days, patient's and sister participating. Discussed his cognitive impairment and supervision needs. Some discussion of prognosis. Set tentative discharge date for 10/18/2017. FOLLOW UP: He will follow up with neurosurgeon, Dr. Kodi Olguin, on 2017. Follow up with his primary care provider, Dr. Jarrett Delarosa, after his discharge. 10/11/17 12:14 Subjective: Complains of back pain. Gets headaches when he awakens which responded to Fioricet. Has been refusing opiates for pain. Objective: Vital Signs Temp Pulse Resp BP Pulse Ox 37.1 C 67 16 142/92 H 95 10/11/17 06:24 10/11/17 06:24 10/11/17 06:24 10/11/17 06:24 10/11/17 06:24 Laboratory Results 10/07/17 06:00 10/11/17 06:00 10/10/17 10/11/17 10/12/17 05:59 05:59 05:59 Intake Total 1640 862 Output Total 1050 850 Balance 590 12 - Time Spent With Patient Time Spent With Patient: Greater than 35 min floor time today, including more than 50% of time in coordination of care during staffing meeting and counseling patient is and sister during family meeting. Physical Exam - Physical Exam General Appearance: WD/WN, alert, no apparent distress Respiratory: No respiratory distress, No accessory muscle use Cardiac/Chest: No edema Back: Normal inspection, Other (Nontender), No CVA tenderness Skin: normal color, warm/dry Neuro/Psych: alert, normal mood/affect, other (Observed doing a puzzle with OT. Distractible and inaccurate needing cuing.) ICD10 Worksheet Patient Problems: Problems Problem Status Onset Cephalgia Acute Right frontal lobe mass Acute
[2017-10-11] MEDS: [UNRECOGNIZED DRUG - OTHER] PO SCH (17:55)
[2017-10-11] MEDS: ACETAMINOPHEN 325 MG TAB PO PRN (17:55)
[2017-10-11] MEDS: [UNRECOGNIZED DRUG - OTHER] PO SCH (17:57)
[2017-10-11] MEDS: [UNRECOGNIZED DRUG - OTHER] PO SCH (17:58)
[2017-10-11] MEDS: oxyCODONE IR 5 MG TAB PO PRN (22:00)
[2017-10-12] MEDS: ACETAMINOPHEN 325 MG TAB PO PRN (08:22)
[2017-10-12] MEDS: DEXAMETHASONE 2 MG TAB PO SCH (08:24)
[2017-10-12] MEDS: levETIRAcetam 500 MG TAB PO SCH ×2 (08:25→20:03)
[2017-10-12] MEDS: SENNOSIDES/DOCUSATE SODIUM TAB PO SCH ×2 (08:26→20:03)
[2017-10-12] MEDS: TAMSULOSIN HCL 0.4 MG CAP PO SCH (08:27)
[2017-10-12] MEDS: ALIVE PO SCH (08:35)
[2017-10-12] MEDS: MVI PO SCH (08:35)
[2017-10-12] MEDS: [UNRECOGNIZED DRUG - OTHER] PO SCH ×3 (09:21→17:21)
[2017-10-12] MEDS: [UNRECOGNIZED DRUG - OTHER] PO SCH ×3 (09:22→17:21)
[2017-10-12] MEDS: [UNRECOGNIZED DRUG - OTHER] PO SCH ×3 (09:22→17:22)
--- NOTE | 2017-10-12 13:32 | SOAPPROG ---
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 * Initial functional independence measure 66 on 10/06/2017. Improved to 79 as of 10/11/2017. Has ambulated 1000 ft standby assist with trekking pole. Negotiates steps with close standby assistance and cues. Dressing requires setup. He needs cues to sit for safety and does not retain strategies. * Continue PT and OT to optimize mobility and ADLs with goal of independence in ADLs and mobility. * Cognitive impairment and encephalopathy status post resection of right frontal brain tumor. * Dysexecutive, stimulus bound. Impulsive and sometimes perseverative. Decreased recall which is improving. Decreased attention and executive function. OLOG . Will need continued structure for safety. * Continue Speech and Language Pathology. * Back pain and decreased ROM in hips * Appears to have normal gait. * Alkaline phosphatase was normal; doubt heterotopic ossification. * Continue efforts of PT. * Headache. He reports he has had the best results with Fioricet in terms of treating the pain. * Continue Fioricet, typically given in the morning for headache, and acetaminophen for back/leg pain. * Headache improving. * Urinary retention. * Tamsulosin begun 10/05/2017 at 0.4 mg QD, titrated to 0.8 mg beginning 2017. * Continue bladder scanning and catheterization for PVR > 400. * Improving; not needing catheterization. * UA negative for infection. * Anaplastic astrocytoma. * Mutation studies on tumor still pending. Prognosis may be 2-3 years if he has while type or 10 12 years if he has muted tumor. * Follow up with Oncology and Radiation Oncology after discharge. * Hyponatremia, mild. * On 1000 cc per day water restriction. Has not been maintaining fluid restriction. * Sodium stable at 133 on BMP 10/11/2017. Will liberalize fluid restriction to 1500 cc. Recheck BMP on 10/13/2017. * Stiff neck and low grade fever. Presentation not otherwise consistent with meningitis. Procalcitonin added to labs 10/05/2017, not elevated. * D/W Dr. Olguin, Neurosurgery. Observe for consistent fever >38.5 or for mental status changes. * Symptoms resolved. * Midline shift and brain edema. Continue dexamethasone taper as ordered out of the hospital. Dexamethasone will be completed on 10/13/2017. * Risk for seizures. Continue levetiracetam. Duration of levetiracetam will be determined by Neurosurgery. * Prophylaxis. He is relatively young and with good mobility. No need for pharmacologic DVT prophylaxis. Multiple family members available to assist with patient and his children. Plan for discharge home with on 10/17/2017. FOLLOW UP: He will follow up with neurosurgeon, Dr. Kodi Olguin, on 2017. Follow up with his primary care provider, Dr. Jarrett Delarosa, after his discharge. 10/12/17 13:28 Subjective: No complaints. Still gets occasional headaches. Reports pain and soreness in his hamstrings and lateral thighs bilaterally. Good appetite, bowels moving, no fevers or chills, no cough or dyspnea. Objective: Vital Signs Temp Pulse Resp BP Pulse Ox 36.8 C 61 16 129/82 H 94 10/12/17 08:00 10/12/17 08:00 10/12/17 08:00 10/12/17 08:00 10/12/17 08:00 Laboratory Results 10/07/17 06:00 10/11/17 06:00 10/11/17 10/12/17 10/13/17 05:59 05:59 05:59 Intake Total 862 1140 240 Output Total 850 1150 250 Balance Physical Exam - Physical Exam General Appearance: WD/WN, alert, no apparent distress Respiratory: normal breath sounds, No crackles, No rhonchi, No wheezing Cardiac/Chest: regular rate, rhythm, No edema Skin: normal color, warm/dry Extremities: other (Tenderness lateral and posterior thighs) Neuro/Psych: no motor/sensory deficits, alert, normal mood/affect ICD10 Worksheet Patient Problems: Problems Problem Status Onset Cephalgia Acute Right frontal lobe mass Acute
[2017-10-12] MEDS: ACET/CAFFEINE/BUTA FIORICET 1 EACH TAB PO PRN (14:32)
[2017-10-13] MEDS: ACET/CAFFEINE/BUTA FIORICET 1 EACH TAB PO PRN ×2 (07:48→17:28)
[2017-10-13] MEDS: [UNRECOGNIZED DRUG - OTHER] PO SCH ×3 (08:23→17:28)
[2017-10-13] MEDS: [UNRECOGNIZED DRUG - OTHER] PO SCH ×3 (08:24→17:29)
[2017-10-13] MEDS: [UNRECOGNIZED DRUG - OTHER] PO SCH ×3 (08:24→17:29)
[2017-10-13] MEDS: ALIVE PO SCH (08:25)
[2017-10-13] MEDS: MVI PO SCH (08:25)
[2017-10-13] MEDS: DEXAMETHASONE 2 MG TAB PO SCH (08:26)
[2017-10-13] MEDS: levETIRAcetam 500 MG TAB PO SCH ×2 (08:26→20:12)
[2017-10-13] MEDS: SENNOSIDES/DOCUSATE SODIUM TAB PO SCH ×2 (08:28→20:12)
[2017-10-13] MEDS: TAMSULOSIN HCL 0.4 MG CAP PO SCH (08:28)
--- NOTE | 2017-10-13 13:02 | SOAPPROG ---
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 * Initial functional independence measure 66 on 10/06/2017. Improved to 79 as of 10/11/2017. Has ambulated 1000 ft standby assist with trekking pole. Negotiates steps with close standby assistance and cues. Dressing requires setup. He needs cues to sit for safety and does not retain strategies. * Continue PT and OT to optimize mobility and ADLs with goal of independence in ADLs and mobility. * Cognitive impairment and encephalopathy status post resection of right frontal brain tumor. * Dysexecutive, stimulus bound. Impulsive and sometimes perseverative. Decreased recall which is improving. Decreased attention and executive function. OLOG . Will need continued structure for safety. * Continue Speech and Language Pathology. * Back pain and decreased ROM in hips * Appears to have normal gait. * Alkaline phosphatase was normal; doubt heterotopic ossification. * Continue efforts of PT. * Headache. He reports he has had the best results with Fioricet in terms of treating the pain. * Continue Fioricet, typically given in the morning for headache, and acetaminophen for back/leg pain. * Headache improving. * Urinary retention. * Tamsulosin begun 10/05/2017 at 0.4 mg QD, titrated to 0.8 mg beginning 2017. * Continue bladder scanning and catheterization for PVR > 400. * Improving; not needing catheterization. * UA negative for infection. * Anaplastic astrocytoma. * Mutation studies on tumor still pending. Prognosis may be 2-3 years if he has while type or 10 12 years if he has muted tumor. * Follow up with Oncology and Radiation Oncology after discharge. * Hyponatremia, mild. * Sodium stable at 133 on BMP 10/11/2017, improved to 135 on 10/13/2017. Continue fluid restriction to 1500 cc. Recheck BMP on 10/16/2017. * Stiff neck and low grade fever. Presentation not otherwise consistent with meningitis. Procalcitonin added to labs 10/05/2017, not elevated. * D/W Dr. Olguin, Neurosurgery. Observe for consistent fever >38.5 or for mental status changes. * Symptoms resolved. * Midline shift and brain edema. Continue dexamethasone taper as ordered out of the hospital. Dexamethasone will be completed on 10/13/2017. * Risk for seizures. Continue levetiracetam. Duration of levetiracetam will be determined by Neurosurgery. * Prophylaxis. He is relatively young and with good mobility. No need for pharmacologic DVT prophylaxis. Multiple family members available to assist with patient and his children. Plan for discharge home with on 10/17/2017. FOLLOW UP: He will follow up with neurosurgeon, Dr. Kodi Olguin, on 2017. Follow up with his primary care provider, Dr. Jarrett Delarosa, after his discharge. 10/13/17 12:59 Subjective: No complaints this morning other than wishing he could be home sooner. Sleeping well. Still having occasional headaches but not needing any oxycodone. No cough or dyspnea, no fevers or chills. Objective: Vital Signs Temp Pulse Resp BP Pulse Ox 37.1 C 64 15 123/80 H 94 10/13/17 08:00 10/13/17 08:00 10/13/17 08:00 10/13/17 08:00 10/13/17 08:00 Laboratory Results 10/07/17 06:00 10/13/17 05:57 10/12/17 10/13/17 10/14/17 05:59 05:59 05:59 Intake Total 1140 977 454 Output Total 1150 1850 300 Balance -10 -873 154 Physical Exam - Physical Exam General Appearance: WD/WN, alert, no apparent distress Respiratory: No respiratory distress, No accessory muscle use Skin: normal color, warm/dry Neuro/Psych: alert, normal mood/affect, oriented x 3 ICD10 Worksheet Patient Problems: Problems Problem Status Onset Cephalgia Acute Right frontal lobe mass Acute
[2017-10-14] MEDS: TAMSULOSIN HCL 0.4 MG CAP PO SCH (09:25)
[2017-10-14] MEDS: [UNRECOGNIZED DRUG - OTHER] PO SCH ×3 (09:25→17:58)
[2017-10-14] MEDS: [UNRECOGNIZED DRUG - OTHER] PO SCH ×3 (09:25→17:58)
[2017-10-14] MEDS: [UNRECOGNIZED DRUG - OTHER] PO SCH ×3 (09:25→17:58)
[2017-10-14] MEDS: MVI PO SCH (09:25)
[2017-10-14] MEDS: ALIVE PO SCH (09:25)
[2017-10-14] MEDS: SENNOSIDES/DOCUSATE SODIUM TAB PO SCH ×2 (09:25→19:55)
[2017-10-14] MEDS: ACET/CAFFEINE/BUTA FIORICET 1 EACH TAB PO PRN (09:26)
[2017-10-14] MEDS: levETIRAcetam 500 MG TAB PO SCH ×2 (09:26→19:55)
--- NOTE | 2017-10-14 10:48 | SOAPPROG ---
SOAP Progress Note Assessment/Plan: A/P Mr. 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 * Initial functional independence measure 66 on 10/06/2017. Improved to 79 as of 10/11/2017. Has ambulated 1000 ft standby assist with trekking pole. Negotiates steps with close standby assistance and cues. Dressing requires setup. He needs cues to sit for safety and does not retain strategies. * Continue PT and OT to optimize mobility and ADLs with goal of independence in ADLs and mobility. * Cognitive impairment and encephalopathy status post resection of right frontal brain tumor. * Dysexecutive, stimulus bound. Impulsive and sometimes perseverative. Decreased recall which is improving. Decreased attention and executive function. OLOG . Will need continued structure for safety. * Continue Speech and Language Pathology. * Back pain and decreased ROM in hips * Appears to have normal gait. * Alkaline phosphatase was normal; doubt heterotopic ossification. * Continue efforts of PT. * Headache. He reports he has had the best results with Fioricet in terms of treating the pain. * Continue Fioricet, typically given in the morning for headache, and acetaminophen for back/leg pain. * Headache improving. * Urinary retention. * Tamsulosin begun 10/05/2017 at 0.4 mg QD, titrated to 0.8 mg beginning 2017. * Continue bladder scanning and catheterization for PVR > 400. * Improving; not needing catheterization. * UA negative for infection. * Anaplastic astrocytoma. * Mutation studies on tumor still pending. Prognosis may be 2-3 years if he has while type or 10 12 years if he has muted tumor. * Follow up with Oncology and Radiation Oncology after discharge. * Hyponatremia, mild. * Sodium stable at 133 on BMP 10/11/2017, improved to 135 on 10/13/2017. Continue fluid restriction to 1500 cc. Recheck BMP on 10/16/2017. * Stiff neck and low grade fever. Presentation not otherwise consistent with meningitis. Procalcitonin added to labs 10/05/2017, not elevated. * D/W Dr. Olguin, Neurosurgery. Observe for consistent fever >38.5 or for mental status changes. * Symptoms resolved. * Midline shift and brain edema. Continue dexamethasone taper as ordered out of the hospital. Dexamethasone will be completed on 10/13/2017. * Risk for seizures. Continue levetiracetam. Duration of levetiracetam will be determined by Neurosurgery. * Prophylaxis. He is relatively young and with good mobility. No need for pharmacologic DVT prophylaxis. Multiple family members available to assist with patient and his children. Plan for discharge home with on 10/17/2017. FOLLOW UP: He will follow up with neurosurgeon, Dr. Kodi Olguin, on 2017. Follow up with his primary care provider, Dr. Jarrett Delarosa, after his discharge. Today's Plan - Pt doing well - no new neurologic changes. Reports that making ongoing improvement but getting anxious to get back home. Continue current rehab /medical plan 10/14/17 10:45 Subjective: Doing well - No fevers/chills, no new neurologic changes. Feeling OK - PRADO/pain are well controlled Objective: Vital Signs Temp Pulse Resp BP Pulse Ox 36.6 C 72 17 124/82 H 93 10/14/17 07:23 10/14/17 07:23 10/14/17 07:23 10/14/17 07:23 10/14/17 07:23 Laboratory Results 10/07/17 06:00 10/13/17 05:57 10/13/17 10/14/17 10/15/17 05:59 05:59 05:59 Intake Total 977 954 360 Output Total 1850 1050 300 Balance -873 -96 60 Physical Exam - Physical Exam General Appearance: alert, no apparent distress Respiratory: lungs clear, normal breath sounds Cardiac/Chest: regular rate, rhythm Abdomen: normal bowel sounds, non-tender, soft Neuro/Psych: alert, normal mood/affect ICD10 Worksheet Patient Problems: Problems Problem Status Onset Cephalgia Acute Right frontal lobe mass Acute
[2017-10-15] MEDS: ACET/CAFFEINE/BUTA FIORICET 1 EACH TAB PO PRN (04:54)
[2017-10-15] MEDS: [UNRECOGNIZED DRUG - OTHER] PO SCH ×3 (08:40→17:03)
[2017-10-15] MEDS: [UNRECOGNIZED DRUG - OTHER] PO SCH ×3 (08:40→17:03)
[2017-10-15] MEDS: [UNRECOGNIZED DRUG - OTHER] PO SCH ×3 (08:40→17:03)
[2017-10-15] MEDS: ALIVE PO SCH (08:40)
[2017-10-15] MEDS: MVI PO SCH (08:40)
[2017-10-15] MEDS: levETIRAcetam 500 MG TAB PO SCH ×2 (08:40→20:59)
[2017-10-15] MEDS: TAMSULOSIN HCL 0.4 MG CAP PO SCH (08:41)
[2017-10-15] MEDS: SENNOSIDES/DOCUSATE SODIUM TAB PO SCH ×2 (08:41→22:32)
--- NOTE | 2017-10-15 09:56 | SOAPPROG ---
SOAP Progress Note Assessment/Plan: A/P Mr. 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 * Initial functional independence measure 66 on 10/06/2017. Improved to 79 as of 10/11/2017. Has ambulated 1000 ft standby assist with trekking pole. Negotiates steps with close standby assistance and cues. Dressing requires setup. He needs cues to sit for safety and does not retain strategies. * Continue PT and OT to optimize mobility and ADLs with goal of independence in ADLs and mobility. * Cognitive impairment and encephalopathy status post resection of right frontal brain tumor. * Dysexecutive, stimulus bound. Impulsive and sometimes perseverative. Decreased recall which is improving. Decreased attention and executive function. OLOG . Will need continued structure for safety. * Continue Speech and Language Pathology. * Back pain and decreased ROM in hips * Appears to have normal gait. * Alkaline phosphatase was normal; doubt heterotopic ossification. * Continue efforts of PT. * Headache. He reports he has had the best results with Fioricet in terms of treating the pain. * Continue Fioricet, typically given in the morning for headache, and acetaminophen for back/leg pain. * Headache improving. * Urinary retention. * Tamsulosin begun 10/05/2017 at 0.4 mg QD, titrated to 0.8 mg beginning 2017. * Continue bladder scanning and catheterization for PVR > 400. * Improving; not needing catheterization. * UA negative for infection. * Anaplastic astrocytoma. * Mutation studies on tumor still pending. Prognosis may be 2-3 years if he has while type or 10 12 years if he has muted tumor. * Follow up with Oncology and Radiation Oncology after discharge. * Hyponatremia, mild. * Sodium stable at 133 on BMP 10/11/2017, improved to 135 on 10/13/2017. Continue fluid restriction to 1500 cc. Recheck BMP on 10/16/2017. * Stiff neck and low grade fever. Presentation not otherwise consistent with meningitis. Procalcitonin added to labs 10/05/2017, not elevated. * D/W Dr. Olguin, Neurosurgery. Observe for consistent fever >38.5 or for mental status changes. * Symptoms resolved. * Midline shift and brain edema. Continue dexamethasone taper as ordered out of the hospital. Dexamethasone will be completed on 10/13/2017. * Risk for seizures. Continue levetiracetam. Duration of levetiracetam will be determined by Neurosurgery. * Prophylaxis. He is relatively young and with good mobility. No need for pharmacologic DVT prophylaxis. Multiple family members available to assist with patient and his children. Plan for discharge home with on 10/17/2017. FOLLOW UP: He will follow up with neurosurgeon, Dr. Kodi Olguin, on 2017. Follow up with his primary care provider, Dr. Jarrett Delarosa, after his discharge. Today's Plan - Have ordered a repeat BMP for tomorrow - Pt has done well with regards to his 1500cc fluid restriction. Overall doing well and calling appropriately. will be in on monday for D/c - Inlaws are also in town to provide support as needed. Pain has been well managed 10/15/17 09:53 Subjective: Rested pretty well last night - Really missing his kids but understands the importance of hanging in there a few more days. no new neurologic changes. continues to do well with both bowel/bladder. pain is being managed without concerns Objective: Vital Signs Temp Pulse Resp BP Pulse Ox 36.9 C 66 16 99/62 L 95 10/15/17 07:28 10/15/17 07:28 10/15/17 07:28 10/15/17 07:28 10/15/17 07:28 Laboratory Results 10/07/17 06:00 10/13/17 05:57 10/14/17 10/15/17 10/16/17 05:59 05:59 05:59 Intake Total 954 1310 177 Output Total 1050 1000 Balance -96 310 177 Physical Exam - Physical Exam General Appearance: alert, no apparent distress Respiratory: lungs clear, normal breath sounds Cardiac/Chest: regular rate, rhythm Abdomen: non-tender, soft Neuro/Psych: normal mood/affect ICD10 Worksheet Patient Problems: Problems Problem Status Onset Cephalgia Acute Right frontal lobe mass Acute
[2017-10-15] MEDS: ACETAMINOPHEN 325 MG TAB PO PRN (21:03)
[2017-10-16] MEDS: [UNRECOGNIZED DRUG - OTHER] PO SCH ×3 (08:16→17:20)
[2017-10-16] MEDS: [UNRECOGNIZED DRUG - OTHER] PO SCH ×3 (08:16→17:20)
[2017-10-16] MEDS: [UNRECOGNIZED DRUG - OTHER] PO SCH ×3 (08:16→17:20)
[2017-10-16] MEDS: levETIRAcetam 500 MG TAB PO SCH ×2 (08:18→20:11)
[2017-10-16] MEDS: TAMSULOSIN HCL 0.4 MG CAP PO SCH (08:20)
[2017-10-16] MEDS: SENNOSIDES/DOCUSATE SODIUM TAB PO SCH ×2 (08:20→20:11)
[2017-10-16] MEDS: MVI PO SCH (08:35)
[2017-10-16] MEDS: ALIVE PO SCH (08:35)
--- NOTE | 2017-10-16 09:35 | SOAPPROG ---
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 * Initial functional independence measure 66 on 10/06/2017. Improved to 79 as of 10/11/2017. Has ambulated 1000 ft standby assist with trekking pole. Negotiates steps with close standby assistance and cues. Dressing requires setup. Advanced to independent in his room 24 hr a day as of 10/16/2017. Using trekking pole. * Continue PT and OT to optimize mobility and ADLs. * Cognitive impairment and encephalopathy status post resection of right frontal brain tumor. * Dysexecutive, stimulus bound. Impulsive and sometimes perseverative. Decreased recall which is improving. Decreased attention and executive function. OLOG . Will need continued structure for safety. * Continue Speech and Language Pathology. * Back pain and decreased ROM in hips * Appears to have normal gait. * Alkaline phosphatase was normal; doubt heterotopic ossification. * Continue efforts of PT. * Headache. He reports he has had the best results with Fioricet in terms of treating the pain. * Continue Fioricet, typically given in the morning for headache, and acetaminophen for back/leg pain. * Headache improving. * Urinary retention. * Tamsulosin begun 10/05/2017 at 0.4 mg QD, titrated to 0.8 mg beginning 2017. * Continue bladder scanning and catheterization for PVR > 400. * Improving; not needing catheterization. * UA negative for infection. * Anaplastic astrocytoma. * Mutation studies on tumor still pending. Prognosis may be 2-3 years if he has wild type or 10 12 years if he has muted tumor. * Follow up with Oncology and Radiation Oncology after discharge. * Hyponatremia, mild. * Sodium stable at 133 on BMP 10/11/2017, improved to 135 on 10/13/2017. Continue fluid restriction to 1500 cc. Recheck BMP on 10/16/2017. * Stiff neck and low grade fever. Presentation not otherwise consistent with meningitis. Procalcitonin added to labs 10/05/2017, not elevated. * D/W Dr. Olguin, Neurosurgery. Observe for consistent fever >38.5 or for mental status changes. * Symptoms resolved. * Midline shift and brain edema. Continue dexamethasone taper as ordered out of the hospital. Dexamethasone will be completed on 10/13/2017. * Risk for seizures. Continue levetiracetam. Duration of levetiracetam will be determined by Neurosurgery. * Prophylaxis. He is relatively young and with good mobility. No need for pharmacologic DVT prophylaxis. Multiple family members available to assist with patient and his children. Plan for discharge home with on 10/17/2017. 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 FOLLOW UP: He will follow up with neurosurgeon, Dr. Kodi Olguin, on 2017. Follow up with his primary care provider, Dr. Jarrett Delarosa, after his discharge. 10/16/17 12:20 Subjective: No complaints. Slept well. Minimal headache pain. No fevers or chills, no cough or dyspnea. Objective: Vital Signs Temp Pulse Resp BP Pulse Ox 36.2 C 69 16 119/74 96 10/15/17 19:09 10/15/17 19:09 10/15/17 19:09 10/15/17 19:09 10/15/17 19:09 Laboratory Results 10/07/17 06:00 10/13/17 05:57 10/15/17 10/16/17 10/17/17 05:59 05:59 05:59 Intake Total 1310 910 Output Total 1000 250 Balance 310 660 Physical Exam - Physical Exam General Appearance: WD/WN, alert, no apparent distress Respiratory: No respiratory distress, No accessory muscle use Skin: normal color, warm/dry, other (Scalp incision well healed.) Neuro/Psych: no motor/sensory deficits, alert, normal mood/affect, oriented x 3 ICD10 Worksheet Patient Problems: Problems Problem Status Onset Cephalgia Acute Right frontal lobe mass Acute
--- NOTE | 2017-10-16 12:38 | PDOREHIP ---
Admission [facility] - Admission - 3 Day Assessment Period Admission Date/Day 1: 10/04/17 Day 2: 10/05/17 Day 3: 10/06/17 Discharge [facility] - Discharge - 3 Day Assessment Period 2 Days Prior to Anticipated Discharge Date: 10/15/17 1 Day Prior to Anticipated Discharge Date: 10/16/17 Anticipated Discharge Date: 10/17/17 - Discharge Skin Conditions Unhealed Pressure Ulcer (1 or more/Stage 1 or >)-Discharge: 0. No
[2017-10-16] MEDS: ACETAMINOPHEN 325 MG TAB PO PRN (21:12)
[2017-10-16 21:53] VITALS: O2SAT 96
[2017-10-17 07:45] VITALS: BP 100/68; PULSE 67; RESP 15; TEMP 98.4
[2017-10-17] MEDS: SENNOSIDES/DOCUSATE SODIUM TAB PO SCH (08:23)
[2017-10-17] MEDS: [UNRECOGNIZED DRUG - OTHER] PO SCH (08:30)
[2017-10-17] MEDS: MVI PO SCH (08:30)
[2017-10-17] MEDS: [UNRECOGNIZED DRUG - OTHER] PO SCH (08:30)
[2017-10-17] MEDS: ALIVE PO SCH (08:30)
[2017-10-17] MEDS: levETIRAcetam 500 MG TAB PO SCH (08:30)
[2017-10-17] MEDS: [UNRECOGNIZED DRUG - OTHER] PO SCH (08:30)
[2017-10-17] MEDS: TAMSULOSIN HCL 0.4 MG CAP PO SCH (08:31)
--- NOTE | 2017-10-17 16:50 | GDS ---
[f rep st] DISCHARGE SUMMARY DISCHARGE DIAGNOSIS: Debility, status post craniotomy and excision of right frontal lobe anaplastic astrocytoma tumor. OTHER DISCHARGE DIAGNOSES: Urinary retention, cognitive impairment, headaches. CONSULTATIONS: There were none. COMPLICATIONS: There were none. PROCEDURES: There were none. HISTORY AND HOSPITAL COURSE: This patient was admitted for rehabilitation following resection of an 8 cm right frontal lobe tumor. He had headaches for about 3 weeks prior. Surgery was on 09/28/2017. He had a postoperative course that was complicated by nausea, somnolence, constipation, and headaches. He had improvement during his rehabilitation stay. He rapidly regained safe mobility. He had walked 1000 feet with standby assist using trekking poles, and he advanced to independent in his room 24 hours a day on 10/16/2017. He had cognitive impairment following his surgery, which improved but persisted. He was dysexecutive, stimulus-bound, impulsive, and sometimes perseverative. He had improvement in recall. It was recommended that he have continued structure for safety. He was able to recall path-finding in the unit , appointments with therapy staff on the unit, and he mostly was able to recall the names of therapists. He was able to express his basic daily needs. He was making comprehension errors in about 50% of simple level written tasks; with cues, he could improve to 80% accuracy. He had greatly reduced initiation at first, but this improved during his stay. He had headaches which were most effectively treated with Fioricet. Headaches improved considerably during his stay. He had urinary retention and initially needed catheterization. He was begun on tamsulosin 0.4 mg daily which was subsequently titrated to 0.8 mg daily, and his urinary retention resolved. He had mild hyponatremia with a sodium at 133. He was put on a 1000 cc fluid restriction, but he did not comply well. Fluid restriction was liberalized to 1500 cc per day. Sodium improved to 135 on 10/13/2017, and then to 141 on 10/16. Fluid restriction was discontinued. Regarding seizure risk, he was taking levetiracetam and this is to be continued until followup with Neurosurgery. Other laboratories and studies during his stay: CBC continued to show leukocytosis which was consistent with steroid taper; on 10/07/2017, his white blood cell count was 17.56 with no left shift. He had no anemia. Serum chemistry on 10/16/2017, revealed normal renal function and electrolytes with no hyponatremia. Urinalysis was done regarding the urinary retention and hyponatremia. He had elevated urine osmolality consistent with SIADH. Urinalysis was negative for any infection. He had a few red blood cells consistent with having been catheterized. A chest x-ray was done on 10/10/2017 , which showed hyperexpanded lungs, but no acute pulmonary pathology. CONDITION UPON DISCHARGE: Good. ACTIVITY: Ad virgie but he needs supervision for safety. DIET: Regular. DATE OF NEXT APPOINTMENT: He is to follow up with neurosurgeon, Dr. Olguin on the day of discharge, 10/17/2017, at 10:40 a.m., and he is to follow up with his primary care provider, Dr. Jarrett Delarosa in approximately 2 weeks. MEDICATIONS AT DISCHARGE: 1. Senna/docusate 2 tabs p.o. twice daily p.r.n. 2. Acetaminophen 650 mg p.o. q.4 hours p.r.n. 3. Levetiracetam 750 mg p.o. twice daily. 4. Tamsulosin 0.8 mg p.o. daily. 5. Calcium carbonate 500 mg p.o. q.4 hours p.r.n. dyspepsia. 6. Fioricet 1 p.o. q.6 hours p.r.n. ISSUES TO BE ADDRESSED AT FOLLOWUP: 1. Anaplastic astrocytoma. He has follow up with Dr. Olguin, neurosurgery, and he will be referred for Oncology and Radiation Oncology. 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 2. 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 3. Urinary retention of unclear etiology. Advise continuing tamsulosin, though as his mobility and functional status improves, he could try tapering. If he has recurrent urinary retention, an evaluation by Urologist might be in order. Copy requested to: MD [place], [place] /[id number]/MODL MTDD
== END 2017-10-17 10:09 | disposition home health service (06) | DRG 949 ==
LOC: BREH 12:59
PROVIDERS: ADMIT Internal Medicine; ATTEND Internal Medicine
PROC: F08Z7ZZ Vocational Activities and Functional Community or Work Reintegration Skills Treatment (ICD-10-PCS; principal; 2017-10-04)
PROC: F07M3ZZ Motor Function Treatment of Musculoskeletal System - Whole Body (ICD-10-PCS; principal; 2017-10-04)
PROC: F0636ZZ Communicative/Cognitive Integration Skills Treatment of Neurological System - Whole Body (ICD-10-PCS; principal; 2017-10-04)
DX: Z48.811 Encounter for surgical aftercare following surgery on the nervous system (principal); Z85.841 Personal history of malignant neoplasm of brain; G93.6 Cerebral edema; R41.841 Cognitive communication deficit; R51 Headache; K59.00 Constipation, unspecified; R33.9 Retention of urine, unspecified; E87.1 Hypo-osmolality and hyponatremia
CPT/HCPCS: 92507-GN; 92522-GN; 97110-GO; 97110-GP; 97112-GP; 97116-GP; 97162-GP; 97166-GO; 97530-GO; 97530-GP; 97535-GO; 99366-GO; G0515-GO

== ENCOUNTER → 2018-02-13 | Outpatient (CLI) | payer OTHER ==
[~2018-02-13] MED LIST: GADOBUTROL 10 ML VIAL IVP ONE
== END ==
LOC: FIMAGING 14:49
PROVIDERS: ATTEND Internal Medicine Hematology & Oncology
DX: Z85.841 Personal history of malignant neoplasm of brain (principal); Z98.890 Other specified postprocedural states
CPT/HCPCS: A9585

== ENCOUNTER → 2018-04-04 | Outpatient (CLI) | payer OTHER, MEDICAID | DX: C71.9 Malignant neoplasm of brain, unspecified (principal); Z79.899 Other long term (current) drug therapy | CPT/HCPCS: A9585 ==

== ENCOUNTER → 2018-06-12 | Outpatient (CLI) | payer OTHER, MEDICAID | LOC: FIMAGING 15:05 | PROVIDERS: ATTEND Internal Medicine Hematology & Oncology | DX: C71.9 Malignant neoplasm of brain, unspecified (principal) | CPT/HCPCS: A9585 ==

== ENCOUNTER → 2018-08-01 | Outpatient (CLI) | payer OTHER, MEDICAID | LOC: FIMAGING 13:22 | PROVIDERS: ATTEND Internal Medicine Hematology & Oncology | DX: Z08 Encounter for follow-up examination after completed treatment for malignant neoplasm (principal); Z85.841 Personal history of malignant neoplasm of brain | CPT/HCPCS: A9585 ==

== ENCOUNTER → 2019-01-08 | Outpatient (CLI) | payer MEDICAID, OTHER | LOC: FIMAGING 10:42 | PROVIDERS: ATTEND Internal Medicine Hematology & Oncology | DX: C71.9 Malignant neoplasm of brain, unspecified (principal); G93.89 Other specified disorders of brain | CPT/HCPCS: A9585 ==